=== PATIENT | male | born 1940 | race Caucasian/White ===

== ENCOUNTER 2017-06-21 19:13 | Emergency (ER) | payer MEDICARE, BC ==
[2017-06-21] MEDS ORDERED: ACETAMINOPHEN TAB 500 MG TAB PO STA (19:43)
[2017-06-21] MEDS ORDERED: SODIUM CHLORIDE 0.9% 1,000 ML IV ONE (19:43)
--- NOTE | 2017-06-21 19:46 | ED ---
General Adult HPI - General Chief complaint: Extremity Problem,Nontraumatic Stated complaint: Edema Time Seen by Provider: 06/21/17 19:14 Source: EMS Mode of arrival: EMS Limitations: altered mental status, physical limitation - History of Present Illness Initial comments: Is a 76-year-old male with a history of CVA and A. fib who presents emergency department for lower extremity edema and left hand swelling. It was noticed at the care home today. The patient states that he has no complaints. He states he has a history of stroke with right-sided deficits. He states he feels unchanged from his baseline. No cough or shortness of breath. No bowel pain. No nausea, vomiting, or diarrhea. The patient is alert and oriented 3. He denies any headaches. No other complaints at this time. - Related Data Home Medications Medication Instructions Recorded Confirmed Acetaminophen Tab [Tylenol Tab] 650 mg PO Q6H PRN 06/21/17 06/21/17 Bisacodyl [Dulcolax] 10 mg RECTAL HS PRN 06/21/17 06/21/17 Ferrous Sulfate [Feosol] 325 mg PO DAILY 06/21/17 06/21/17 Iron Polysaccharide Complex 150 mg PO DAILY 06/21/17 06/21/17 [Myferon 150] Lactose-Reduced Food [Ensure Plus] 1 can PO TID 06/21/17 06/21/17 Menthol/Zinc Oxide [Calmoseptine 1 applic TOPICAL BID PRN 06/21/17 06/21/17 Ointment] Metoprolol Tartrate [Lopressor] 25 mg PO BID 06/21/17 06/21/17 Miconazole 2% Cream [Monistat-Derm] 1 applic TOPICAL BID 06/21/17 06/21/17 Mirtazapine [Remeron] 15 mg PO HS 06/21/17 06/21/17 Multivitamins, Thera [Multivitamin 1 tab PO DAILY 06/21/17 06/21/17 (formulary)] Polyethylene Glycol 3350 [Miralax] 17 gm PO DAILY 06/21/17 06/21/17 Potassium Chloride [K-Tab ER] 10 meq PO DAILY 06/21/17 06/21/17 Rivaroxaban [Xarelto] 20 mg PO DAILY 06/21/17 06/21/17 Sennosides-Docusate Sodium 1 tab PO BID 06/21/17 06/21/17 [Senokot-S] Simvastatin [Zocor] 40 mg PO HS 06/21/17 06/21/17 levETIRAcetam [Keppra] 500 mg PO Q12HR 06/21/17 06/21/17 Previous Rx's Medication Instructions Recorded Clindamycin HCl [Cleocin] 600 mg PO TID #42 cap 06/21/17 Allergies Allergy/AdvReac Type Severity Reaction Status Date / Time No Known Allergies Allergy Verified 06/21/17 19:37 Review of Systems ROS Statement: Those systems with pertinent positive or pertinent negative responses have been documented in the HPI. ROS Other: All systems not noted in ROS Statement are negative. Past Medical History Past Medical History: Atrial Fibrillation, CVA/TIA, Deep Vein Thrombosis (DVT), Hyperlipidemia, Hypertension, Pulmonary Embolus (PE) Additional Past Medical History / Comment(s): neoplasm R kidney, pressue ulcers to L buttock, History of Any Multi-Drug Resistant Organisms: None Reported Past Surgical History: Orthopedic Surgery Past Psychological History: Depression Smoking Status: Never smoker Past Alcohol Use History: Occasional Past Drug Use History: None Reported General Exam - General Exam Comments Initial Comments: Constitutional: Awake alert Appears comfortable Head: Normocephalic atraumatic Eyes: no conjunctival injection No scleral icterus EOMI ENT: Oropharynx is nonerythematous, TMs are clear bilaterally Neck: No JVD Supple Heart: Regular rate rhythm normal S1-S2 no murmurs Lungs: Clear to auscultation bilaterally No wheezing No rales Abdomen: Soft nondistended nontender Extremities: Pitting edema to bilateral lower extremities, mild swelling to the left hand with mild redness and warmth, neurovascular intact distally DP pulses intact Radial pulses intact Neuro: A&Ox3 right sided upper and lower extremity weakness which is chronic Psych: Appropriate mood and affect Limitations: altered mental status, physical limitation Course Vital Signs 06/21/17 06/21/17 06/21/17 19:15 21:48 22:00 Temperature 100.3 F H 98.3 F Pulse Rate 60 72 73 Respiratory 17 18 18 Rate Blood Pressure 132/72 122/59 122/59 O2 Sat by Pulse 98 100 96 Oximetry EKG Findings - EKG Comments: EKG Findings:: EKG is showing what appears to be sinus bradycardia with a rate bundle-branch block at a rate of 57. There is some irregularity to the rhythm. QTC is 418. QRS is 134. Other intervals normal. No ectopy. Medical Decision Making - Medical Decision Making Is a 76-year-old male with history of stroke presents emergency department for left hand swelling and lower extremity swelling. Dopplers showed chronic DVT in the lower [place]. The patient is Unser alto already. No DVT in the left upper extremity. Patient did have a mild fever when he came in however no leukocytosis. The rest of his vital signs were stable. Fever resolved after Tylenol. Left hand appears to be developing cellulitis. Going to send the patient on clindamycin. Currently hemodynamically stable. Will be going back to nursing facility who will administer his medications and monitor his hand. Can return for worsening swelling, redness, or persistent fevers. - Lab Data Result diagrams: 06/21/17 19:54 06/21/17 19:54 Lab Results 06/21/17 06/21/17 06/21/17 Range/Units 19:54 19:54 19:54 WBC 5.4 (3.8-10.6) k/uL RBC 3.69 L (4.30-5.90) m/uL Hgb 11.2 L (13.0-17.5) gm/dL Hct 35.0 L (39.0-53.0) % MCV 94.9 D (80.0-100.0) fL MCH 30.4 (25.0-35.0) pg MCHC 32.1 (31.0-37.0) g/dL RDW 16.3 H (11.5-15.5) % Plt Count 269 (150-450) k/uL Neutrophils % 69 % Lymphocytes % 20 % Monocytes % 7 % Eosinophils % 1 % Basophils % 0 % Neutrophils # 3.7 (1.3-7.7) k/uL Lymphocytes # 1.1 (1.0-4.8) k/uL Monocytes # 0.4 (0-1.0) k/uL Eosinophils # 0.1 (0-0.7) k/uL Basophils # 0.0 (0-0.2) k/uL Hypochromasia Slight Anisocytosis Slight Sodium 138 (137-145) mmol/L Potassium 4.7 (3.5-5.1) mmol/L Chloride 102 (98-107) mmol/L Carbon Dioxide 27 (22-30) mmol/L Anion Gap 9 mmol/L BUN 29 H (9-20) mg/dL Creatinine 1.70 H (0.66-1.25) mg/dL Est GFR (MDRD) Af Amer 48 (>60 ml/min/1.73 sqM) Est GFR (MDRD) Non-Af 39 (>60 ml/min/1.73 sqM) Glucose 113 H (74-99) mg/dL Plasma Lactic Acid Efrem (0.7-2.0) mmol/L Calcium 9.7 (8.4-10.2) mg/dL Magnesium 1.9 (1.6-2.3) mg/dL Total Bilirubin 0.5 (0.2-1.3) mg/dL AST 16 L (17-59) U/L ALT 29 (21-72) U/L Alkaline Phosphatase 103 (38-126) U/L CK-MB (CK-2) 0.8 (0.0-2.4) ng/mL Troponin I <0.012 (0.000-0.034) ng/mL Total Protein 6.8 (6.3-8.2) g/dL Albumin 3.9 (3.5-5.0) g/dL Lipase 51 (23-300) U/L Urine Color Urine Appearance (Clear) Urine pH (5.0-8.0) Ur Specific [place] (1.001-1.035) Urine Protein (Negative) Urine Glucose (UA) (Negative) Urine Ketones (Negative) Urine Blood (Negative) Urine Nitrite (Negative) Urine Bilirubin (Negative) Urine Urobilinogen (<2.0) mg/dL Ur Leukocyte Esterase (Negative) Urine RBC (0-5) /hpf Urine WBC (0-5) /hpf Ur Squamous Epith Cells (0-4) /hpf Urine Mucus (None) /hpf Influenza Type A RNA (Not Detectd) Influenza Type B (PCR) (Not Detectd) 06/21/17 06/21/17 06/21/17 Range/Units 19:54 19:54 22:00 WBC (3.8-10.6) k/uL RBC (4.30-5.90) m/uL Hgb (13.0-17.5) gm/dL Hct (39.0-53.0) % MCV (80.0-100.0) fL MCH (25.0-35.0) pg MCHC (31.0-37.0) g/dL RDW (11.5-15.5) % Plt Count (150-450) k/uL Neutrophils % % Lymphocytes % % Monocytes % % Eosinophils % % Basophils % % Neutrophils # (1.3-7.7) k/uL Lymphocytes # (1.0-4.8) k/uL Monocytes # (0-1.0) k/uL Eosinophils # (0-0.7) k/uL Basophils # (0-0.2) k/uL Hypochromasia Anisocytosis Sodium (137-145) mmol/L Potassium (3.5-5.1) mmol/L Chloride (98-107) mmol/L Carbon Dioxide (22-30) mmol/L Anion Gap mmol/L BUN (9-20) mg/dL Creatinine (0.66-1.25) mg/dL Est GFR (MDRD) Af Amer (>60 ml/min/1.73 sqM) Est GFR (MDRD) Non-Af (>60 ml/min/1.73 sqM) Glucose (74-99) mg/dL Plasma Lactic Acid Efrem 0.9 (0.7-2.0) mmol/L Calcium (8.4-10.2) mg/dL Magnesium (1.6-2.3) mg/dL Total Bilirubin (0.2-1.3) mg/dL AST (17-59) U/L ALT (21-72) U/L Alkaline Phosphatase (38-126) U/L CK-MB (CK-2) (0.0-2.4) ng/mL Troponin I (0.000-0.034) ng/mL Total Protein (6.3-8.2) g/dL Albumin (3.5-5.0) g/dL Lipase (23-300) U/L Urine Color Yellow Urine Appearance Cloudy (Clear) Urine pH 5.5 (5.0-8.0) Ur Specific [place] 1.022 (1.001-1.035) Urine Protein 1+ H (Negative) Urine Glucose (UA) Negative (Negative) Urine Ketones Negative (Negative) Urine Blood Negative (Negative) Urine Nitrite Negative (Negative) Urine Bilirubin Negative (Negative) Urine Urobilinogen <2.0 (<2.0) mg/dL Ur Leukocyte Esterase Moderate H (Negative) Urine RBC 4 (0-5) /hpf Urine WBC 3 (0-5) /hpf Ur Squamous Epith Cells 2 (0-4) /hpf Urine Mucus Moderate H (None) /hpf Influenza Type A RNA Not Detected (Not Detectd) Influenza Type B (PCR) Not Detected (Not Detectd) Disposition Clinical Impression: Cellulitis Disposition: DC/TRNS INTERMEDIATE CARE FAC Condition: Stable Instructions: Cellulitis (ED) Prescriptions: Clindamycin HCl [Cleocin] 600 mg PO TID #42 cap Referrals: Hilton Nunes DO [Primary Care Provider] - 1-2 days - Out of Hospital Transfer - Req. Specs Out of Hospital Transfer - Requested Specifics: Other Non-Acute ([facility])
[2017-06-21 20:16] LABS: Anisocytosis Slight; Basophils % (A) 0 %; Eosinophils # (A) 0.1 k/uL (0-0.7); Eosinophils % (A) 1 %; HGB 11.2 gm/dL (13.0-17.5); Hypochromasia Slight; Lymphocytes # (A) 1.1 k/uL (1.0-4.8); Lymphocytes % (A) 20 %; MCH 30.4 pg (25.0-35.0); MCHC 32.1 g/dL (31.0-37.0); Mean Platelet Volume 7.1; Monocytes # (A) 0.4 k/uL (0-1.0); Monocytes % (A) 7 %; Neutrophils # (A) 3.7 k/uL (1.3-7.7); Neutrophils % (A) 69 %; Platelet Count 269 k/uL (150-450); RBC 3.69 m/uL (4.30-5.90); RDW 16.3 % (11.5-15.5); WBC 5.4 k/uL (3.8-10.6)
[2017-06-21 20:24] LABS: MCV 94.9 fL (80.0-100.0)
--- NOTE | 2017-06-21 20:27 | XR ---
EXAMINATION TYPE: XR chest 2V DATE OF EXAM: 06/21/2017 COMPARISON: NONE HISTORY: Chest pain TECHNIQUE: Frontal and lateral views of the chest are obtained. FINDINGS: There is no heart failure nor confluent pneumonic infiltrate. Costophrenic angles are andres r. There is spurring in the thoracic spine. Thoracic aorta is atheromatous. There are chest leads. IMPRESSION: No active cardiopulmonary disease.
[2017-06-21 20:30] LABS: Albumin 3.9 g/dL (3.5-5.0); Calcium 9.7 mg/dL (8.4-10.2); Magnesium 1.9 mg/dL (1.6-2.3); Potassium 4.7 mmol/L (3.5-5.1); Total Bilirubin 0.5 mg/dL (0.2-1.3); Total Protein 6.8 g/dL (6.3-8.2)
[2017-06-21 21:01] LABS: Creatine Kinase MB 0.8 ng/mL (0.0-2.4); Troponin I <0.012 ng/mL (0.000-0.034)
--- NOTE | 2017-06-21 21:20 | US ---
EXAMINATION TYPE: US venous doppler duplex LE DATE OF EXAM: 06/21/2017 8:45 PM COMPARISON: NONE CLINICAL HISTORY: New swelling. Patient is currently taking blood thinners SIDE PERFORMED: Bilateral TECHNIQUE: The lower extremity deep venous system is examined utilizing real time linear array sonog courtney with graded compression, doppler sonography and color-flow sonography. VESSELS IMAGED: External Iliac Vein (EIV) Common Femoral Vein Deep Femoral Vein Greater Saphenous Vein * Femoral Vein Popliteal Vein Small Saphenous Vein * Proximal Calf Veins (* superficial vessels) Right Leg: Positive for non-occluding DVT Left Leg: Positive for non-occluding DVT IMPRESSION: No evidence of acute deep venous thrombosis. There is evidence for limited chronic deep venous thrombosis.
--- NOTE | 2017-06-21 21:24 | US ---
EXAMINATION TYPE: US venous doppler duplex UE LT DATE OF EXAM: 06/21/2017 COMPARISON: NONE CLINICAL HISTORY: New Swelling. SIDE PERFORMED: Left Left Arm: Appears negative for DVT IMPRESSION: Negative exam. No evidence of deep venous thrombosis in the left arm.
[2017-06-21 21:49] VITALS: RESP 18; TEMP 98.3
[2017-06-21 22:25] LABS: Appearance,Urine Cloudy (Clear); Bilirubin,Urine Negative (Negative); Blood,Urine Negative (Negative); Color,Urine Yellow; Glucose,Urine (UA) Negative (Negative); Ketones,Urine Negative (Negative); Leukocyte Esterase,Urine Moderate (Negative); Mucus,Urine Moderate /hpf; Nitrite,Urine Negative (Negative); PH, Urine 5.5 (5.0-8.0); Protein,Urine 1+ (Negative); RBC,Urine 4 /hpf (0-5); Specific Gravity,Urine 1.022 (1.001-1.035); Squamous Epithelial Cell,Urine 2 /hpf (0-4); Urobilinogen,Urine <2.0 mg/dL (<2.0); WBC,Urine 3 /hpf (0-5)
[2017-06-21 23:19] VITALS: BP 131/59; PULSE 67
== END 2017-06-21 23:20 ==
LOC: EEVIPCON 19:13 → EC 19:13
DX: L03.114 Cellulitis of left upper limb (principal); R60.0 Localized edema; E78.5 Hyperlipidemia, unspecified; I10 Essential (primary) hypertension; F32.9 Major depressive disorder, single episode, unspecified; Z85.528 Personal history of other malignant neoplasm of kidney; Z86.73 Personal history of transient ischemic attack (TIA), and cerebral infarction without residual deficits; Z86.711 Personal history of pulmonary embolism; Z86.718 Personal history of other venous thrombosis and embolism; Z79.01 Long term (current) use of anticoagulants; Z79.899 Other long term (current) drug therapy
CPT/HCPCS: 36415; 71020; 80053; 81001; 82553; 83605; 83690; 83735; 84484; 85025; 87040; 87086; 87502; 93005; 93970; 96360; 96361; 99285

== ENCOUNTER 2017-07-09 15:10 | Inpatient (IN) | payer MEDICARE ==
[2017-07-09] MEDS ORDERED: ACETAMINOPHEN TAB 500 MG TAB PO STA (15:12)
[2017-07-09] MEDS ORDERED: SODIUM CHLORIDE 0.9% 1,000 ML IV STA ×2 (15:12)
[2017-07-09] MEDS ORDERED: IBUPROFEN 600 MG TAB PO STA (15:12)
--- NOTE | 2017-07-09 15:21 | ED ---
General Adult HPI - General Chief complaint: Fever Stated complaint: infection Time Seen by Provider: 07/09/17 15:12 Source: EMS, RN notes reviewed, old records reviewed Mode of arrival: EMS Limitations: no limitations - History of Present Illness Initial comments: This is a 69-year-old male to the ER for evaluation. Patient sent for evaluation regarding rule out sepsis. Positive fever weakness elevated heart rate. Patient is weal and having decreased appetite and lack of activity per [place] patient is being treated for outpatient cellulitis is on antibiotics. Patient spiked fever today with increasing complaints of not feeling well - Related Data Home Medications Medication Instructions Recorded Confirmed Acetaminophen Tab [Tylenol Tab] 650 mg PO Q6H PRN 06/21/17 07/09/17 Bisacodyl [Dulcolax] 10 mg RECTAL HS PRN 06/21/17 07/09/17 Iron Polysaccharide Complex 150 mg PO DAILY 06/21/17 07/09/17 [Myferon 150] Lactose-Reduced Food [Ensure Plus] 1 can PO TID 06/21/17 07/09/17 Menthol/Zinc Oxide [Calmoseptine 1 applic TOPICAL BID PRN 06/21/17 07/09/17 Ointment] Metoprolol Tartrate [Lopressor] 25 mg PO BID 06/21/17 07/09/17 Miconazole 2% Cream [Monistat-Derm] 1 applic TOPICAL BID 06/21/17 07/09/17 Mirtazapine [Remeron] 15 mg PO HS 06/21/17 07/09/17 Multivitamins, Thera [Multivitamin 1 tab PO DAILY 06/21/17 07/09/17 (formulary)] Polyethylene Glycol 3350 [Miralax] 17 gm PO DAILY 06/21/17 07/09/17 Potassium Chloride [K-Tab ER] 10 meq PO DAILY 06/21/17 07/09/17 Rivaroxaban [Xarelto] 20 mg PO DAILY 06/21/17 07/09/17 Sennosides-Docusate Sodium 1 tab PO BID 06/21/17 07/09/17 [Senokot-S] Simvastatin [Zocor] 40 mg PO HS 06/21/17 07/09/17 levETIRAcetam [Keppra] 500 mg PO Q12HR 06/21/17 07/09/17 Allergies Allergy/AdvReac Type Severity Reaction Status Date / Time No Known Allergies Allergy Verified 07/09/17 15:25 Review of Systems ROS Statement: Those systems with pertinent positive or pertinent negative responses have been documented in the HPI. ROS Other: All systems not noted in ROS Statement are negative. Past Medical History Past Medical History: Atrial Fibrillation, CVA/TIA, Deep Vein Thrombosis (DVT), Hyperlipidemia, Hypertension, Pulmonary Embolus (PE) Additional Past Medical History / Comment(s): neoplasm R kidney, pressue ulcers to L buttock, History of Any Multi-Drug Resistant Organisms: None Reported Past Surgical History: Orthopedic Surgery Past Psychological History: Depression Smoking Status: Never smoker Past Alcohol Use History: Occasional Past Drug Use History: None Reported General Exam - General Exam Comments Initial Comments: Bilateral hand cellulitis and edema Limitations: no limitations General appearance: alert, in no apparent distress Head exam: Present: atraumatic, normocephalic, normal inspection Eye exam: Present: normal appearance, PERRL, EOMI. Absent: scleral icterus, conjunctival injection, periorbital swelling ENT exam: Present: normal exam, mucous membranes moist Neck exam: Present: normal inspection. Absent: tenderness, meningismus, lymphadenopathy Respiratory exam: Present: normal lung sounds bilaterally. Absent: respiratory distress, wheezes, rales, rhonchi, stridor Cardiovascular Exam: Present: regular rate, normal rhythm, normal heart sounds. Absent: systolic murmur, diastolic murmur, rubs, gallop, clicks GI/Abdominal exam: Present: soft, normal bowel sounds. Absent: distended, tenderness, guarding, rebound, rigid Extremities exam: Present: normal inspection, full ROM, normal capillary refill. Absent: tenderness, pedal edema, joint swelling, calf tenderness Back exam: Present: normal inspection Neurological exam: Present: alert, oriented X3, CN II-XII intact Psychiatric exam: Present: normal affect, normal mood Skin exam: Present: warm, dry, intact, normal color. Absent: rash Course Vital Signs 07/09/17 07/09/17 15:17 16:02 Temperature 101.6 F H Pulse Rate 107 H Respiratory 18 18 Rate Blood Pressure 122/66 O2 Sat by Pulse 97 Oximetry - Reevaluation(s) Reevaluation #1: 07/09/17 15:21 Transferring paperwork is reviewed EKG Findings - EKG Comments: EKG Findings:: EKG shows sinus rhythm rate of 87, QRS 140, QTC 500 Medical Decision Making - Medical Decision Making 69 male the ER for evaluation of fever, patient with fever and cellulitis, felt outpatient treatment. Will admit for IV antibiotics - Lab Data Result diagrams: 07/09/17 15:30 07/09/17 15:30 Lab Results 07/09/17 07/09/17 07/09/17 Range/Units 15:30 15:30 15:30 WBC 6.7 (3.8-10.6) k/uL RBC 3.38 L (4.30-5.90) m/uL Hgb 10.0 L (13.0-17.5) gm/dL Hct 31.8 L (39.0-53.0) % MCV 94.1 (80.0-100.0) fL MCH 29.6 (25.0-35.0) pg MCHC 31.4 (31.0-37.0) g/dL RDW 16.6 H (11.5-15.5) % Plt Count 222 (150-450) k/uL Neutrophils % 75 % Lymphocytes % 16 % Monocytes % 6 % Eosinophils % 1 % Basophils % 0 % Neutrophils # 5.1 (1.3-7.7) k/uL Lymphocytes # 1.1 (1.0-4.8) k/uL Monocytes # 0.4 (0-1.0) k/uL Eosinophils # 0.0 (0-0.7) k/uL Basophils # 0.0 (0-0.2) k/uL Anisocytosis Slight PT (9.0-12.0) sec INR (<1.2) APTT (22.0-30.0) sec Sodium 136 L (137-145) mmol/L Potassium 4.4 (3.5-5.1) mmol/L Chloride 103 (98-107) mmol/L Carbon Dioxide 22 (22-30) mmol/L Anion Gap 11 mmol/L BUN 33 H (9-20) mg/dL Creatinine 1.54 H (0.66-1.25) mg/dL Est GFR (MDRD) Af Amer 53 (>60 ml/min/1.73 sqM) Est GFR (MDRD) Non-Af 44 (>60 ml/min/1.73 sqM) Glucose 147 H (74-99) mg/dL Plasma Lactic Acid Efrem (0.7-2.0) mmol/L Calcium 8.9 (8.4-10.2) mg/dL Phosphorus 3.3 (2.5-4.5) mg/dL Magnesium 1.8 (1.6-2.3) mg/dL Total Bilirubin 0.6 (0.2-1.3) mg/dL AST 21 (17-59) U/L ALT 30 (21-72) U/L Alkaline Phosphatase 85 (38-126) U/L Total Creatine Kinase 316 H (55-170) U/L CK-MB (CK-2) 1.7 (0.0-2.4) ng/mL CK-MB (CK-2) Rel Index 0.5 Troponin I 0.037 H* (0.000-0.034) ng/mL Total Protein 6.2 L (6.3-8.2) g/dL Albumin 3.5 (3.5-5.0) g/dL Urine Color Urine Appearance (Clear) Urine pH (5.0-8.0) Ur Specific [place] (1.001-1.035) Urine Protein (Negative) Urine Glucose (UA) (Negative) Urine Ketones (Negative) Urine Blood (Negative) Urine Nitrite (Negative) Urine Bilirubin (Negative) Urine Urobilinogen (<2.0) mg/dL Ur Leukocyte Esterase (Negative) Urine WBC (0-5) /hpf Ur Squamous Epith Cells (0-4) /hpf Urine Bacteria (None) /hpf Urine Mucus (None) /hpf Influenza Type A RNA (Not Detectd) Influenza Type B (PCR) (Not Detectd) 07/09/17 07/09/17 07/09/17 Range/Units 15:30 15:30 15:35 WBC (3.8-10.6) k/uL RBC (4.30-5.90) m/uL Hgb (13.0-17.5) gm/dL Hct (39.0-53.0) % MCV (80.0-100.0) fL MCH (25.0-35.0) pg MCHC (31.0-37.0) g/dL RDW (11.5-15.5) % Plt Count (150-450) k/uL Neutrophils % % Lymphocytes % % Monocytes % % Eosinophils % % Basophils % % Neutrophils # (1.3-7.7) k/uL Lymphocytes # (1.0-4.8) k/uL Monocytes # (0-1.0) k/uL Eosinophils # (0-0.7) k/uL Basophils # (0-0.2) k/uL Anisocytosis PT 11.7 (9.0-12.0) sec INR 1.2 H (<1.2) APTT 31.6 H (22.0-30.0) sec Sodium (137-145) mmol/L Potassium (3.5-5.1) mmol/L Chloride (98-107) mmol/L Carbon Dioxide (22-30) mmol/L Anion Gap mmol/L BUN (9-20) mg/dL Creatinine (0.66-1.25) mg/dL Est GFR (MDRD) Af Amer (>60 ml/min/1.73 sqM) Est GFR (MDRD) Non-Af (>60 ml/min/1.73 sqM) Glucose (74-99) mg/dL Plasma Lactic Acid Efrem 0.9 (0.7-2.0) mmol/L Calcium (8.4-10.2) mg/dL Phosphorus (2.5-4.5) mg/dL Magnesium (1.6-2.3) mg/dL Total Bilirubin (0.2-1.3) mg/dL AST (17-59) U/L ALT (21-72) U/L Alkaline Phosphatase (38-126) U/L Total Creatine Kinase (55-170) U/L CK-MB (CK-2) (0.0-2.4) ng/mL CK-MB (CK-2) Rel Index Troponin I (0.000-0.034) ng/mL Total Protein (6.3-8.2) g/dL Albumin (3.5-5.0) g/dL Urine Color Urine Appearance (Clear) Urine pH (5.0-8.0) Ur Specific [place] (1.001-1.035) Urine Protein (Negative) Urine Glucose (UA) (Negative) Urine Ketones (Negative) Urine Blood (Negative) Urine Nitrite (Negative) Urine Bilirubin (Negative) Urine Urobilinogen (<2.0) mg/dL Ur Leukocyte Esterase (Negative) Urine WBC (0-5) /hpf Ur Squamous Epith Cells (0-4) /hpf Urine Bacteria (None) /hpf Urine Mucus (None) /hpf Influenza Type A RNA Not Detected (Not Detectd) Influenza Type B (PCR) Not Detected (Not Detectd) 07/09/17 Range/Units 16:10 WBC (3.8-10.6) k/uL RBC (4.30-5.90) m/uL Hgb (13.0-17.5) gm/dL Hct (39.0-53.0) % MCV (80.0-100.0) fL MCH (25.0-35.0) pg MCHC (31.0-37.0) g/dL RDW (11.5-15.5) % Plt Count (150-450) k/uL Neutrophils % % Lymphocytes % % Monocytes % % Eosinophils % % Basophils % % Neutrophils # (1.3-7.7) k/uL Lymphocytes # (1.0-4.8) k/uL Monocytes # (0-1.0) k/uL Eosinophils # (0-0.7) k/uL Basophils # (0-0.2) k/uL Anisocytosis PT (9.0-12.0) sec INR (<1.2) APTT (22.0-30.0) sec Sodium (137-145) mmol/L Potassium (3.5-5.1) mmol/L Chloride (98-107) mmol/L Carbon Dioxide (22-30) mmol/L Anion Gap mmol/L BUN (9-20) mg/dL Creatinine (0.66-1.25) mg/dL Est GFR (MDRD) Af Amer (>60 ml/min/1.73 sqM) Est GFR (MDRD) Non-Af (>60 ml/min/1.73 sqM) Glucose (74-99) mg/dL Plasma Lactic Acid Efrem (0.7-2.0) mmol/L Calcium (8.4-10.2) mg/dL Phosphorus (2.5-4.5) mg/dL Magnesium (1.6-2.3) mg/dL Total Bilirubin (0.2-1.3) mg/dL AST (17-59) U/L ALT (21-72) U/L Alkaline Phosphatase (38-126) U/L Total Creatine Kinase (55-170) U/L CK-MB (CK-2) (0.0-2.4) ng/mL CK-MB (CK-2) Rel Index Troponin I (0.000-0.034) ng/mL Total Protein (6.3-8.2) g/dL Albumin (3.5-5.0) g/dL Urine Color Yellow Urine Appearance Clear (Clear) Urine pH 5.5 (5.0-8.0) Ur Specific [place] 1.018 (1.001-1.035) Urine Protein 1+ H (Negative) Urine Glucose (UA) Negative (Negative) Urine Ketones Negative (Negative) Urine Blood Small H (Negative) Urine Nitrite Negative (Negative) Urine Bilirubin Negative (Negative) Urine Urobilinogen <2.0 (<2.0) mg/dL Ur Leukocyte Esterase Negative (Negative) Urine WBC <1 (0-5) /hpf Ur Squamous Epith Cells <1 (0-4) /hpf Urine Bacteria Rare H (None) /hpf Urine Mucus Rare H (None) /hpf Influenza Type A RNA (Not Detectd) Influenza Type B (PCR) (Not Detectd) Disposition Clinical Impression: Fever, Weakness, Failure of outpatient treatment, Cellulitis Disposition: ADMITTED IP TO THIS [facility] Condition: Good Referrals: Hilton Nunes DO [Primary Care Provider] - 1-2 days
[2017-07-09 15:43] LABS: Anisocytosis Slight; Basophils % (A) 0 %; Eosinophils % (A) 1 %; HCT 31.8 % (39.0-53.0); Lymphocytes # (A) 1.1 k/uL (1.0-4.8); Lymphocytes % (A) 16 %; MCH 29.6 pg (25.0-35.0); MCHC 31.4 g/dL (31.0-37.0); MCV 94.1 fL (80.0-100.0); Mean Platelet Volume 7.2; Monocytes # (A) 0.4 k/uL (0-1.0); Monocytes % (A) 6 %; Neutrophils # (A) 5.1 k/uL (1.3-7.7); Neutrophils % (A) 75 %; Platelet Count 222 k/uL (150-450); RBC 3.38 m/uL (4.30-5.90); RDW 16.6 % (11.5-15.5); WBC 6.7 k/uL (3.8-10.6)
[2017-07-09 15:52] LABS: INR 1.2 (<1.2); Partial Thromboplastin Time 31.6 sec (22.0-30.0); Prothrombin Time 11.7 sec (9.0-12.0)
[2017-07-09 16:00] LABS: Albumin 3.5 g/dL (3.5-5.0); Calcium 8.9 mg/dL (8.4-10.2); Magnesium 1.8 mg/dL (1.6-2.3); Phosphorus 3.3 mg/dL (2.5-4.5); Potassium 4.4 mmol/L (3.5-5.1); Total Bilirubin 0.6 mg/dL (0.2-1.3); Total Protein 6.2 g/dL (6.3-8.2)
[2017-07-09 16:16] LABS: Creatine Kinase MB 1.7 ng/mL (0.0-2.4)
[2017-07-09 16:17] LABS: Troponin I 0.037 ng/mL (0.000-0.034)
[2017-07-09 16:26] LABS: Appearance,Urine Clear (Clear); Bacteria,Urine Rare /hpf; Bilirubin,Urine Negative (Negative); Blood,Urine Small (Negative); Color,Urine Yellow; Glucose,Urine (UA) Negative (Negative); Ketones,Urine Negative (Negative); Leukocyte Esterase,Urine Negative (Negative); Mucus,Urine Rare /hpf; Nitrite,Urine Negative (Negative); PH, Urine 5.5 (5.0-8.0); Protein,Urine 1+ (Negative); Specific Gravity,Urine 1.018 (1.001-1.035); Squamous Epithelial Cell,Urine <1 /hpf (0-4); Urobilinogen,Urine <2.0 mg/dL (<2.0); WBC,Urine <1 /hpf (0-5)
[2017-07-09] MEDS ORDERED: cefTRIAXone IN SWFI 1,000 MG/10 ML SYRINGE IVP STA (16:31)
--- NOTE | 2017-07-09 16:47 | XR ---
EXAMINATION TYPE: XR chest 2V DATE OF EXAM: 07/09/2017 COMPARISON: 06/21/2017 HISTORY: Weakness and fever TECHNIQUE: Frontal and lateral views of the chest are obtained. FINDINGS: There is some mild patchy infiltrate on the right side in the right lower lobe. There is n o heart failure. There is no pleural effusion. There is spurring in the thoracic spine. IMPRESSION: Mild pulmonary infiltrates appear new compared to old exam. No heart failure.
[2017-07-09] MEDS: SODIUM CHLORIDE 0.45% 1,000 ML IV SCH ×2 (16:50→21:47)
[2017-07-09] MEDS ORDERED: LEVOFLOXACIN 750MG-D5W PMX 750 MG in DEXTROSE/WATER 1 150ML.BAG IVPB STA (17:02)
[2017-07-09] MEDS ORDERED: PIPERACILLIN-TAZOBACTAM 3.375 GM in DEXTROSE/WATER 1 50ML.BAG IVPB STA (17:02)
[2017-07-09] MEDS ORDERED: ACETAMINOPHEN TAB 325 MG TAB PO PRN (17:56)
[2017-07-09] MEDS ORDERED: BISACODYL 10 MG SUPP RECTAL PRN (17:56)
[2017-07-09] MEDS ORDERED: MENTHOL-ZINC OXIDE OINT 113 GM TUBE TOPICAL PRN (17:56)
[2017-07-09] MEDS ORDERED: levETIRAcetam 500 MG TAB PO SCH (21:00)
[2017-07-09] MEDS ORDERED: NON-FORMULARY DRUG (Lactose-Reduced Food [Ensure Plus] 1 CAN) PO SCH (22:00)
[2017-07-09] MEDS: ATORVASTATIN 20 MG TAB PO SCH (22:11)
[2017-07-09] MEDS: MIRTAZAPINE 15 MG TAB PO SCH (22:12)
[2017-07-09] MEDS: METOPROLOL TARTRATE 25 MG TAB PO SCH (22:12)
[2017-07-09] MEDS: SENNOSIDES-DOCUSATE SODIUM 1 EACH TAB PO SCH (22:12)
[2017-07-09] MEDS: MICONAZOLE NITRATE 2% CREAM 14 GM TUBE TOPICAL SCH (22:13)
--- NOTE | 2017-07-09 23:14 | HP ---
HISTORY AND PHYSICAL DATE OF ADMISSION: 07/09/2017 PRESENTING COMPLAINT: Fever, altered mental status. HISTORY OF PRESENTING COMPLAINT: This is a 77-year-old patient who was transferred from the [facility]. The patient is rather lethargic, not able to give much of a history, but reading the ER and the EMS notes, was called to the [facility]. The patient did have a fever close to 102, was somewhat confused. Nurse tells me that he is able to say his name. He does mumble when I try to talk to him. The patient was therefore brought in here. Nurse also did inform me that patient was recently at [place]. It did not show what he was there for and then he got transferred to inpatient rehab. The patient's chronic stable medical conditions include atrial fibrillation, stroke, hyperlipidemia, hypertension, kidney disease, neoplasm of right kidney, iron-deficiency anemia, incontinence, unsteady gait leading to assist and stroke affecting the left side with weakness. REVIEW OF SYSTEMS: Really cannot be obtained, as patient is not able to really communicate except for a few words here and there. PAST MEDICAL HISTORY: Atrial fibrillation, stroke, DVT, hypertension, hyperlipidemia, PE, kidney disease, neoplasm right kidney, pressure ulcer of the left buttock, iron-deficiency anemia, incontinent of stool and urine, stroke affecting the left side, unsteady gait with 2 assist to the wheelchair, rheumatic fever. PAST SURGICAL HISTORY: Bilateral knee replacement. PSYCH HISTORY: Depression. SOCIAL HISTORY: A resident of [facility] with 2 assist to wheelchair. The patient has a [facility] Public Guardian. The patient's daughter Cyndie is not the power of personal injury attorney. That was suspended. The patient did smoke in the past, alcohol occasionally. FAMILY HISTORY: Coronary artery disease. HOME MEDICATIONS: 1. Keppra 500 mg p.o. q.12. 2. Zocor 40 mg q.h.s. 3. Senokot-S 1 tablet p.o. b.i.d. 4. Xarelto 20 mg p.o. daily. 5. Potassium 10 mEq p.o. daily. 6. MiraLAX 17 g p.o. daily. 7. Multivitamin 1 tablet p.o. daily. 8. Remeron 50 mg p.o. q.h.s. 9. Monistat-Derm 1 application topical b.i.d. 10.Lopressor 25 p.o. b.i.d. 11.Calmoseptine 1 application topical b.i.d. p.r.n. 12.Ensure Plus 1 can p.o. t.i.d. 13.Myferon 150 mg p.o. daily. 14.Dulcolax 10 mg rectal q.h.s. p.r.n. 15.Tylenol 650 mg every 6 hours p.r.n. ALLERGIES: None. EXAMINATION: VITAL SIGNS: On presentation, temperature 101.6, pulse 107, respirations 18, blood pressure 122/66, pulse ox 97% on 2L. GENERAL APPEARANCE: Lying in bed, lethargic, but just arousable. EYES: Pupils equal. Conjunctivae normal. HEENT: Oral cavity: Dry mucous membranes. NECK: JVD unable to assess. Mass not palpable. RESPIRATORY: Effort slightly increased. LUNGS: Diminished breath sounds. Some crackles. CARDIOVASCULAR: Heart sounds regular. No edema. ABDOMEN: Soft, nontender. Liver and spleen not palpable. PSYCHIATRY: The patient is somewhat delirious, says a few words here and there. NEUROLOGICAL: Pupils equal. No facial asymmetry. Unable to fully assess further, as patient is very lethargic. INVESTIGATIONS: White count 6.7, hemoglobin 10.0. Potassium 4.4, BUN 33, creatinine 1.54. The patient's BUN and creatinine on 05/06/2017 was 27/1.50. Troponin 0.037. UA negative for leuko esterase. Influenza negative. Chest x-ray shows right lower lobe infiltrate. ASSESSMENT: 1. Right lower lobe pneumonia, suspect gram-negative organism causing sepsis. 2. Left-sided weakness from a prior stroke. 3. Hyperlipidemia. 4. Essential hypertension. 5. Right kidney cancer. 6. Depression, not otherwise specified. 7. Acute metabolic encephalopathy from sepsis, present on admission. 8. Right bundle branch block. 9. Persistent atrial fibrillation, chronically on Xarelto. PLAN: At this time, will do aspiration precautions. Patient lethargic, not able to give any medications. The patient is already on IV antibiotics. Will get an ID opinion. Will get a CT scan of the brain and patient clinically does not appear to be have a stroke or will get a neurology opinion. Overall prognosis is guarded. MMODL / IJN: [id number] /
--- NOTE | 2017-07-10 01:02 | CT ---
EXAMINATION TYPE: CT brain wo con DATE OF EXAM: 07/10/2017 COMPARISON: NONE HISTORY: AMS, r/o stroke CT DLP: 1047.10 mGycm Automated exposure control for dose reduction was used. FINDINGS: There is a 7 x 4 cm area of hypodensity in the right parietal and temporal lobe related to old infarc t. There is extensive hypodensity in the periventricular white matter. There is no mass effect nor mi dline shift. There is no evidence of intracranial hemorrhage. The calvarium is intact. IMPRESSION: CEREBRAL ATROPHY AND EXTENSIVE CHRONIC SMALL VESSEL ISCHEMIA. 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
[2017-07-10] MEDS: levETIRAcetam IV 500 MG in SODIUM CHLORIDE 0.9% 100 ML IVPB SCH ×3 (02:07→20:23)
[2017-07-10] MEDS: cefTRIAXone IN SWFI 1,000 MG/10 ML SYRINGE IVP SCH ×3 (02:34→20:23)
[2017-07-10] MEDS: SODIUM CHLORIDE 0.45% 1,000 ML IV SCH ×3 (05:32→20:42)
[2017-07-10] MEDS: METOPROLOL TARTRATE 25 MG TAB PO SCH ×2 (08:55→20:22)
[2017-07-10] MEDS: IRON POLYSACCHARIDES COMPLEX 150 MG CAP PO SCH (08:55)
[2017-07-10] MEDS: PANTOPRAZOLE 40 MG/10 ML VIAL IV SCH (08:56)
[2017-07-10] MEDS: POTASSIUM CHLORIDE ER 10 MEQ TAB.ER.PRT PO SCH (08:57)
[2017-07-10] MEDS: POLYETHYLENE GLYCOL 3350 17 GM POWD.PACK PO SCH (08:57)
[2017-07-10] MEDS: SENNOSIDES-DOCUSATE SODIUM 1 EACH TAB PO SCH ×2 (08:58→20:22)
[2017-07-10] MEDS ORDERED: RIVAROXABAN 10 MG TAB PO SCH (09:00)
[2017-07-10] MEDS: MICONAZOLE NITRATE 2% CREAM 14 GM TUBE TOPICAL SCH ×2 (09:19→20:23)
[2017-07-10] MEDS: MULTIVITAMINS, THERA 1 EACH TAB PO SCH (13:45)
--- NOTE | 2017-07-10 14:24 | P.CONS ---
History of Present Illness - Reason for Consult Consult date: 07/10/17 Fever - History of Present Illness This is a 77-year-old male patient who came in from [facility]. He is unable to give any reliable story. History is obtained from the [facility] records, ER records and nursing staff. Patient apparently has developed fever, weakness increased heart rate and decreased appetite with mental status changes. He was recently treated by Dr. Nunes for bilateral wrist cellulitis for which she was started on Keflex on June 30 and the Medrol Dosepak. X-ray left wrist on June 24 showed no acute abnormality and appears swollen. A shunt brought in by EMS to [facility] emergency center for evaluation. Patient was found to be febrile with temperature 101.6, white count 6.7, creatinine 1.54. Influenza testing was negative. Urinalysis was clear, protein 1+, blood small, bacteria rare. Urine culture is in progress and Blood culture is received. Patient was started on Rocephin, Levaquin and Zosyn in the emergency center and admitted to the selective care unit. There is also consult in place for Dr. Orona for mental status changes. Patient is currently on Rocephin. Review of Systems ROS unobtainable: due to mental status Past Medical History Past Medical History: Atrial Fibrillation, CVA/TIA, Deep Vein Thrombosis (DVT), Hyperlipidemia, Hypertension, Pulmonary Embolus (PE), Renal Disease Additional Past Medical History / Comment(s): rt side dominant,neoplasm R kidney , pressue ulcers to L buttock, cellulitis, iron deficency anemia,incont stooll/ urine,cva affected lt side hemiplegia/hemiparesis, unsteady gait, up w/2 to assist to w/c,uti, rheumatic fever History of Any Multi-Drug Resistant Organisms: None Reported Past Surgical History: Joint Replacement, Orthopedic Surgery Additional Past Surgical History / Comment(s): ed knee replacments Past Anesthesia/Blood Transfusion Reactions: Unable to Obtain Smoking Status: Former smoker - Past Family History Father Family Medical History: Coronary Artery Disease (CAD) Medications and Allergies Home Medications Medication Instructions Recorded Confirmed Type Acetaminophen Tab [Tylenol] 650 mg PO Q6H PRN 06/21/17 07/09/17 History Bisacodyl [Dulcolax] 10 mg RECTAL HS PRN 06/21/17 07/09/17 History Iron Polysaccharide Complex 150 mg PO DAILY 06/21/17 07/09/17 History [Myferon 150] Lactose-Reduced Food [Ensure Plus] 1 can PO TID 06/21/17 07/09/17 History Menthol/Zinc Oxide [Calmoseptine 1 applic TOPICAL BID PRN 06/21/17 07/09/17 History Ointment] Metoprolol Tartrate [Lopressor] 25 mg PO BID 06/21/17 07/09/17 History Miconazole 2% Cream [Monistat-Derm] 1 applic TOPICAL BID 06/21/17 07/09/17 History Mirtazapine [Remeron] 15 mg PO HS 06/21/17 07/09/17 History Multivitamins, Thera [Multivitamin 1 tab PO DAILY 06/21/17 07/09/17 History (formulary)] Polyethylene Glycol 3350 [Miralax] 17 gm PO DAILY 06/21/17 07/09/17 History Potassium Chloride [K-Tab ER] 10 meq PO DAILY 06/21/17 07/09/17 History Sennosides-Docusate Sodium 1 tab PO BID 06/21/17 07/09/17 History [Senokot-S] Simvastatin [Zocor] 40 mg PO HS 06/21/17 07/09/17 History levETIRAcetam [Keppra] 500 mg PO Q12HR 06/21/17 07/09/17 History Aspirin EC [Ecotrin Low Dose] 81 mg PO DAILY #1 tablet. 07/14/17 Rx Cefixime [Suprax] 400 mg PO DAILY 7 Days #7 cap NS 07/14/17 Rx Pantoprazole [Protonix] 40 mg PO [id number] tablet. 07/14/17 Rx Rivaroxaban [Xarelto] 15 mg PO DAILY tab 07/14/17 Rx Allergies Allergy/AdvReac Type Severity Reaction Status Date / Time No Known Allergies Allergy Verified 07/09/17 15:25 Physical Exam Vitals: Vital Signs Temp Pulse Pulse Resp BP BP Pulse Ox 07/10/17 04:00 82 16 117/56 99 07/10/17 00:00 96.2 F L 70 16 109/56 99 07/09/17 20:00 96.4 F L 78 17 110/64 98 07/09/17 18:41 96.7 F L 82 20 115/64 98 07/09/17 18:17 97.1 F L 77 18 114/67 98 07/09/17 16:48 97.1 F L 88 18 115/66 98 07/09/17 16:02 18 07/09/17 15:17 101.6 F H 107 H 18 122/66 97 Intake and Output 07/09/17 07/10/17 07/10/17 22:59 06:59 14:59 Intake Total 300 1200 Output Total 250 Balance 50 1200 Intake: IV 300 1200 Sodium Chloride 0.45% 1, 300 1200 000 ml @ 150 mls/hr IV . Q6H40M [facility] Rx#:[id number] Output: Urine 250 Straight 250 Other: Voiding Method Diaper Diaper Incontinent Incontinent # Voids 1 Weight 89.811 kg 78.5 kg Gen: This is a 77-year-old male patient. Patient appears to be sleeping and arouses to verbal stimuli but is not following direction and dressed back to sleep. HEENT: Head is atraumatic, normocephalic. Pupils equal, round. Sclerae is anicteric. NECK: Supple. No JVD. No lymphadenopathy. No thyromegaly. LUNGS: Diminished. No intercostal retractions. HEART: Regular rate and rhythm. No murmur. ABDOMEN: Soft. Bowel sounds are present. No masses. No tenderness. Patient has been incontinent of urine with diaper in place and is saturated bedding and down. EXTREMITIES: No pedal edema. No calf tenderness. Dorsalis pedus +2 bilateral NEUROLOGICAL: Patient is sleepy arouses to verbal stimuli. Patient is confused. Results Results: Laboratory Results WBC 6.7 k/uL (3.8-10.6) 07/09/17 15:30 RBC 3.38 m/uL (4.30-5.90) L 07/09/17 15:30 Hgb 10.0 gm/dL (13.0-17.5) L 07/09/17 15:30 Hct 31.8 % (39.0-53.0) L 07/09/17 15:30 MCV 94.1 fL (80.0-100.0) 07/09/17 15:30 MCH 29.6 pg (25.0-35.0) 07/09/17 15:30 MCHC 31.4 g/dL (31.0-37.0) 07/09/17 15:30 RDW 16.6 % (11.5-15.5) H 07/09/17 15:30 Plt Count 222 k/uL (150-450) 07/09/17 15:30 Neutrophils % 75 % 07/09/17 15:30 Lymphocytes % 16 % 07/09/17 15:30 Monocytes % 6 % 07/09/17 15:30 Eosinophils % 1 % 07/09/17 15:30 Basophils % 0 % 07/09/17 15:30 Neutrophils # 5.1 k/uL (1.3-7.7) 07/09/17 15:30 Lymphocytes # 1.1 k/uL (1.0-4.8) 07/09/17 15:30 Monocytes # 0.4 k/uL (0-1.0) 07/09/17 15:30 Eosinophils # 0.0 k/uL (0-0.7) 07/09/17:30 Basophils # 0.0 k/uL (0-0.2) 07/09/17 15:30 Anisocytosis Slight 07/09/17 15:30 PT 11.7 sec (9.0-12.0) 07/09/17 15:30 INR 1.2 (<1.2) H 07/09/17 15:30 APTT 31.6 sec (22.0-30.0) H 07/09/17 15:30 Sodium 136 mmol/L (137-145) L 07/09/17 15:30 Potassium 4.4 mmol/L (3.5-5.1) 07/09/17 15:30 Chloride 103 mmol/L (98-107) 07/09/17 15:30 Carbon Dioxide 22 mmol/L (22-30) 07/09/17 15:30 Anion Gap 11 mmol/L 07/09/17 15:30 BUN 33 mg/dL (9-20) H 07/09/17 15:30 Creatinine 1.54 mg/dL (0.66-1.25) H 07/09/17 15:30 Est GFR (MDRD) Af Amer 53 (>60 ml/min/1.73 sqM) 07/09/17 15:30 Est GFR (MDRD) Non-Af 44 (>60 ml/min/1.73 sqM) 07/09/17 15:30 Glucose 147 mg/dL (74-99) H 07/09/17 15:30 Plasma Lactic Acid Efrem 0.9 mmol/L (0.7-2.0) 07/09/17 15:30 Calcium 8.9 mg/dL (8.4-10.2) 07/09/17 15:30 Phosphorus 3.3 mg/dL (2.5-4.5) 07/09/17 15:30 Magnesium 1.8 mg/dL (1.6-2.3) 07/09/17 15:30 Total Bilirubin 0.6 mg/dL (0.2-1.3) 07/09/17 15:30 AST 21 U/L (17-59) 07/09/17 15:30 ALT 30 U/L (21-72) 07/09/17 15:30 Alkaline Phosphatase 85 U/L (38-126) 07/09/17 15:30 Total Creatine Kinase 316 U/L (55-170) H 07/09/17 15:30 CK-MB (CK-2) 1.7 ng/mL (0.0-2.4) 07/09/17 15:30 CK-MB (CK-2) Rel Index 0.5 07/09/17 15:30 Troponin I 0.047 ng/mL (0.000-0.034) H* 07/09/17 23:36 Total Protein 6.2 g/dL (6.3-8.2) L 07/09/17 15:30 Albumin 3.5 g/dL (3.5-5.0) 07/09/17 15:30 Urine Color Yellow 07/09/17 16:10 Urine Appearance Clear (Clear) 07/09/17 16:10 Urine pH 5.5 (5.0-8.0) 07/09/17 16:10 Ur Specific [place] 1.018 (1.001-1.035) 07/09/17 16:10 Urine Protein 1+ (Negative) H 07/09/17 16:10 Urine Glucose (UA) Negative (Negative) 07/09/17 16:10 Urine Ketones Negative (Negative) 07/09/17 16:10 Urine Blood Small (Negative) H 07/09/17 16:10 Urine Nitrite Negative (Negative) 07/09/17 16:10 Urine Bilirubin Negative (Negative) 07/09/17 16:10 Urine Urobilinogen <2.0 mg/dL (<2.0) 07/09/17 16:10 Ur Leukocyte Esterase Negative (Negative) 07/09/17 16:10 Urine WBC <1 /hpf (0-5) 07/09/17 16:10 Ur Squamous Epith Cells <1 /hpf (0-4) 07/09/17 16:10 Urine Bacteria Rare /hpf (None) H 07/09/17 16:10 Urine Mucus Rare /hpf (None) H 07/09/17 16:10 Influenza Type A RNA Not Detected (Not Detectd) 07/09/17 15:35 Influenza Type B (PCR) Not Detected (Not Detectd) 07/09/17 15:35 CBC & Chem 7: 07/12/17 05:51 07/12/17 05:51 Labs: Abnormal Lab Results - Last 24 Hours (Table) 07/09/17 07/09/17 07/09/17 Range/Units 15:30 15:30 15:30 RBC 3.38 L (4.30-5.90) m/uL Hgb 10.0 L (13.0-17.5) gm/dL Hct 31.8 L (39.0-53.0) % RDW 16.6 H (11.5-15.5) % INR (<1.2) APTT (22.0-30.0) sec Sodium 136 L (137-145) mmol/L BUN 33 H (9-20) mg/dL Creatinine 1.54 H (0.66-1.25) mg/dL Glucose 147 H (74-99) mg/dL Total Creatine Kinase 316 H (55-170) U/L Troponin I 0.037 H* (0.000-0.034) ng/mL Total Protein 6.2 L (6.3-8.2) g/dL Urine Protein (Negative) Urine Blood (Negative) Urine Bacteria (None) /hpf Urine Mucus (None) /hpf 07/09/17 07/09/17 07/09/17 Range/Units 15:30 16:10 23:36 RBC (4.30-5.90) m/uL Hgb (13.0-17.5) gm/dL Hct (39.0-53.0) % RDW (11.5-15.5) % INR 1.2 H (<1.2) APTT 31.6 H (22.0-30.0) sec Sodium (137-145) mmol/L BUN (9-20) mg/dL Creatinine (0.66-1.25) mg/dL Glucose (74-99) mg/dL Total Creatine Kinase (55-170) U/L Troponin I 0.047 H* (0.000-0.034) ng/mL Total Protein (6.3-8.2) g/dL Urine Protein 1+ H (Negative) Urine Blood Small H (Negative) Urine Bacteria Rare H (None) /hpf Urine Mucus Rare H (None) /hpf Microbiology - Last 24 Hours (Table) 07/09/17 16:10 Urine Culture - Preliminary Urine,Catheterized Assessment and Plan Plan: This is a 77-year-old male who was brought into the hospital with metabolic encephalopathy, right lower lobe pneumonia possible gram-negative pneumonia, sepsis.. Patient was recently treated for bilateral wrist cellulitis for which she was on Keflex and [facility] Dosepak at the [facility]. Patient is noted to have some erythema and warmth to the right wrist. Continue supportive care. Further recommendations as patient progresses. The above dictated assessment and findings were discussed with Dr. Martin. The impression and plan of care have been directed as dictated. Carol Ann Davidson nurse practitioner acting as scribe for Dr. Martin.
--- NOTE | 2017-07-10 17:53 | P.CNNES ---
History of Present Illness Consult date: 07/10/17 Requesting physician: Kiran Arzola Reason for Consult: Mental status changes History of Present Illness: Patient is a 77-year-old male who is being evaluated by the neurology service on 07/10/2017 per the request of Dr. Arzola for altered mental status. Patient currently resides at [facility] and was transferred from there to [facility]. Patient is a poor historian. History is obtained from nursing staff and chart. Reportedly, patient has had a stroke in the past leaving left-sided weakness. He had developed a fever, weakness, increased heart rate, decreased appetite, and mental status changes area did patient was recently treated for bilateral wrist cellulitis and had been on Keflex and a Medrol Dosepak. On admission, patient was found to be febrile with a temp of 101.6, the WBCs 6.7, BUN 33, creatinine of 1.54, CK 316, and elevated troponins. Patient had a chest x-ray done which showed right lower lobe pneumonia. CT of the brain was done which showed cerebral atrophy and extensive chronic small vessel ischemia. 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 On admission, temperature was 101.6, pulse was 107, respirations 18, blood pressure 122/66, and O2 sat of 97% on 2 L. At the time of my evaluation, patient is lethargic but arousable. Patient does not appear to be in any acute distress. Review of Systems REVIEW OF SYSTEMS: Otherwise unremarkable and noncontributory. Past Medical History Past Medical History: Atrial Fibrillation, CVA/TIA, Deep Vein Thrombosis (DVT), Hyperlipidemia, Hypertension, Pulmonary Embolus (PE), Renal Disease Additional Past Medical History / Comment(s): rt side dominant,neoplasm R kidney , pressue ulcers to L buttock, cellulitis, iron deficency anemia,incont stooll/ urine,cva affected lt side hemiplegia/hemiparesis, unsteady gait, up w/2 to assist to w/c,uti, rheumatic fever History of Any Multi-Drug Resistant Organisms: None Reported Past Surgical History: Joint Replacement, Orthopedic Surgery Additional Past Surgical History / Comment(s): ed knee replacments Past Anesthesia/Blood Transfusion Reactions: Unable to Obtain Smoking Status: Former smoker - Past Family History Father Family Medical History: Coronary Artery Disease (CAD) Medications and Allergies Home Medications Medication Instructions Recorded Confirmed Type Acetaminophen Tab [Tylenol Tab] 650 mg PO Q6H PRN 06/21/17 07/09/17 History Bisacodyl [Dulcolax] 10 mg RECTAL HS PRN 06/21/17 07/09/17 History Iron Polysaccharide Complex 150 mg PO DAILY 06/21/17 07/09/17 History [Myferon 150] Lactose-Reduced Food [Ensure Plus] 1 can PO TID 06/21/17 07/09/17 History Menthol/Zinc Oxide [Calmoseptine 1 applic TOPICAL BID PRN 06/21/17 07/09/17 History Ointment] Metoprolol Tartrate [Lopressor] 25 mg PO BID 06/21/17 07/09/17 History Miconazole 2% Cream [Monistat-Derm] 1 applic TOPICAL BID 06/21/17 07/09/17 History Mirtazapine [Remeron] 15 mg PO HS 06/21/17 07/09/17 History Multivitamins, Thera [Multivitamin 1 tab PO DAILY 06/21/17 07/09/17 History (formulary)] Polyethylene Glycol 3350 [Miralax] 17 gm PO DAILY 06/21/17 07/09/17 History Potassium Chloride [K-Tab ER] 10 meq PO DAILY 06/21/17 07/09/17 History Rivaroxaban [Xarelto] 20 mg PO DAILY 06/21/17 07/09/17 History Sennosides-Docusate Sodium 1 tab PO BID 06/21/17 07/09/17 History [Senokot-S] Simvastatin [Zocor] 40 mg PO HS 06/21/17 07/09/17 History levETIRAcetam [Keppra] 500 mg PO Q12HR 06/21/17 07/09/17 History Allergies Allergy/AdvReac Type Severity Reaction Status Date / Time No Known Allergies Allergy Verified 07/09/17 15:25 Physical Examination - Vital Signs Vital Signs: Vital Signs Temp Pulse Pulse Resp BP BP Pulse Ox 07/10/17 15:48 98.4 F 72 20 100 07/10/17 12:00 98.2 F 111 H 16 99/60 100 07/10/17 08:00 98.2 F 72 16 116/57 100 07/10/17 04:00 82 16 117/56 99 07/10/17 00:00 96.2 F L 70 16 109/56 99 07/09/17 20:00 96.4 F L 78 17 110/64 98 07/09/17 18:41 96.7 F L 82 20 115/64 98 07/09/17 18:17 97.1 F L 77 18 114/67 98 Intake and Output 07/10/17 07/10/17 07/10/17 06:59 14:59 22:59 Intake Total 1200 Balance 1200 Intake: IV 1200 Sodium Chloride 0.45% 1, 1200 000 ml @ 150 mls/hr IV . Q6H40M [facility] Rx#:[id number] Other: Voiding Method Diaper Diaper Diaper Incontinent Incontinent Incontinent # Voids 1 2 1 Weight 78.5 kg PHYSICAL EXAM: GENERAL APPEARANCE: Patient is a well-developed, male who appears to be in no acute distress. HEENT: Normocephalic, atraumatic, no obvious facial asymmetry is seen. Neck is supple with no masses felt. CARDIOVASCULAR: Regular rate and rhythm. ABDOMEN: Nontender, nondistended. EXTREMITIES: Show no edema or clubbing. NEUROLOGICAL EXAM: Patient is lethargic but awakens to name. He is oriented to self only. Speech is mildly dysarthric due to lethargy. Speech is mumbled. Language is normal. Strength is 4/4 in left upper and lower extremities and 5-/ 5 in right upper and lower extremity. Sensory exam is normal to light touch in all 4 extremities. No obvious facial asymmetry is seen on cranial nerve testing. No tremors or seizure-like activity is noted. Results - Laboratory Findings CBC and BMP: 07/09/17 15:30 07/09/17 15:30 Abnormal Lab Findings: Abnormal Labs 07/09/17 07/09/17 07/09/17 15:30 15:30 15:30 RBC 3.38 L Hgb 10.0 L Hct 31.8 L RDW 16.6 H INR APTT Sodium 136 L BUN 33 H Creatinine 1.54 H Glucose 147 H Total Creatine Kinase 316 H Troponin I 0.037 H* Total Protein 6.2 L Urine Protein Urine Blood Urine Bacteria Urine Mucus 07/09/17 07/09/17 07/09/17 15:30 16:10 23:36 RBC Hgb Hct RDW INR 1.2 H APTT 31.6 H Sodium BUN Creatinine Glucose Total Creatine Kinase Troponin I 0.047 H* Total Protein Urine Protein 1+ H Urine Blood Small H Urine Bacteria Rare H Urine Mucus Rare H Assessment and Plan Plan: Impression: 1. Altered mental status 2. Acute multifactorial encephalopathy 3. Pneumonia 4. History of CVA with left-sided weakness 5. Hypertension 6. History of atrial fibrillation, on Xarelto 7. History of kidney cancer Recommendation: The patient's altered mental status was likely due to metabolic encephalopathy from sepsis and fever. Infectious disease has been consulted. It does not appear that patient suffered a cerebrovascular accident. Left- sided weakness is residual from previous stroke. No obvious new lateralizing weakness or facial asymmetry. As mentioned above, computed tomography scan shows no acute findings. It is unclear if patient has history of seizures as he is on Keppra. For now continue Keppra. I will order an EEG. I recommend to continue Xarelto and statin therapy. Continue neurological checks. I will continue to follow with you. Further recommendations to follow. Thank you for allowing me to participate in the care of your patient. The free to call with any questions or concerns. I performed an examination of the patient and discussed the management with the [facility]. I have reviewed the [facility] notes and agree with the findings and plan of care.
--- NOTE | 2017-07-10 18:10 | P.CON ---
Consult Note - . Consult date: 07/10/17 Assessment/Plan:: This is a 77-year-old male patient who came in from [facility]. He is unable to give any reliable story. History is obtained from the [facility] records, ER records and nursing staff. Patient apparently has developed fever, weakness increased heart rate and decreased appetite with mental status changes. He was recently treated by Dr. Nunes for bilateral wrist cellulitis for which she was started on Keflex on June 30 and the Medrol Dosepak. X-ray left wrist on June 24 showed no acute abnormality and appears swollen. A shunt brought in by EMS to [facility] emergency center for evaluation. Patient was found to be febrile with temperature 101.6, white count 6.7, creatinine 1.54. Influenza testing was negative. Urinalysis was clear, protein 1+, blood small, bacteria rare. Urine culture is in progress and Blood culture is received. Patient was started on Rocephin, Levaquin and Zosyn in the emergency center and admitted to the selective care unit. There is also consult in place for Dr. Orona for mental status changes. Patient is currently on Rocephin. Please see the consult note as dictated by nurse practitioner Mrs. Carol Ann Davidson. 77-year-old male as noted is a very poor historian has a waxing and waning mental status. Presents with fever and acute illness as above. Has been seen by neurology and workup is in progress. Underlying infectious etiologies of concern. His concerns pneumonia but that would not explain the significant pain and swelling to the wrist that has waxed and waned. Concern would be to underlying crystalline arthropathy such as gout or pseudogout causing significant pain and swelling to the wrist which also cause fever. Chest x-ray is reviewed showing evidence concerns to new infiltrate. Antimicrobial therapy with Rocephin is adequate at this point in time pending further culture data. Blood work requested for evaluation of question arthropathy. Pain control is currently adequate. I agree with evaluation, assessment and plan as dictated by nurse practitioner Mrs. Carol Ann Davidson.
--- NOTE | 2017-07-10 18:31 | P.PN ---
Progress Note - Text Progress Note Date: 07/10/17 DATE OF SERVICE: 07/10/2017 PRESENTING COMPLAINT: Fever altered mental status HISTORY OF PRESENT ILLNESS: 77-year-old male who was transferred from an ECF found to have a fever close to 102 and was confused. Diagnostics reveal right lower lobe pneumonia and was admitted for the same. INTERVAL HISTORY: 07/10/2017: Lying in bed, minimally responsive opens his eyes to his name, no acute distress , no acute overnight events, afebrile, vital signs stable. Right wrist remains reddened and warm, infectious disease to see the patient. Tolerating his diet, has residual left-sided weakness from an old stroke so requires assistance to ambulate. Last BM prior to admission. REVIEW OF SYSTEMS: Done for constitutional ,cardiovascular, GI, pulmonary with relevant findings as above. CURRENT MEDICATIONS Tylenol, Lipitor, Dulcolax, Rocephin, Keppra, Lopressor, miconazole, mirtazapine , multivitamin, Protonix, MiraLAX, potassium chloride, Xarelto, Senokot-S, half- normal saline PHYSICAL EXAM VITAL SIGNS: Temperature 98.2, pulse 111, respiratory rate 16, blood pressure 99/60, oxygen saturation on her percent on room air. GENERAL APPEARANCE: Lying in bed, lethargic and arousable.. HENT: Normocephalic, JVD not raised. Mass not palpable. Oral cavity dry, external appearance of ears and nose normal. EYES:Pupils equal. Conjunctiva normal. RESPIRATORY: Respiratory effort mildly increased. Lungs diminished with crackles bilaterally to auscultation. CARDIOVASCULAR: Irregular rhythm No edema. ABDOMEN: Soft. Liver and spleen not palpable. No tenderness. No mass palpable. PSYCHIATRY: Answering some very straightforward questions and follows simple commands Mood and affect lethargic. MUSCULOSKELETAL: Residual left-sided weakness from a prior stroke INVESTIGATIONS: LABS: None new Blood and urine cultures pending ASSESSMENT: -Right lower lobe pneumonia, suspect gram-negative organism causing sepsis. -Left sided weakness from prior stroke. -Hyperlipidemia. -Essential hypertension. -Right kidney cancer. -Depression not otherwise specified. -Acute metabolic encephalopathy from sepsis present on admission. -Recurrent bundle branch block. -Persistent atrial flutter fibrillation, chronically on Xarelto. PLAN: Continue current medication and treatment plan, await results of EEG. Continue Keppra. Clinically does not appear that patient is having a stroke that his deficits are related to an old stroke. Rocephin will provide adequate coverage for bilateral wrist cellulitis and further workup continues for evaluation of arthropathy to the wrists. Plan of care discussed at the bedside we'll continue to follow closely. FARM MANAGEMENT SUPERVISOR statement: Patient was seen and examined by nurse practitioner Emmy Simms and all elements of the case discussed with attending Dr. Arzloa
--- NOTE | 2017-07-10 18:48 | XR ---
EXAMINATION TYPE: XR wrist limited bilateral DATE OF EXAM: 07/10/2017 COMPARISON: NONE HISTORY: Pain, gout. TECHNIQUE: 4 views FINDINGS: There is moderate spurring and narrowing at the first carpometacarpal joints. There is some subluxation deformity at the right second and third MP joints. I see no fracture nor dislocation. Th ere is calcification of the triangular cartilage bilaterally. There is vascular calcification. IMPRESSION: Moderate osteoarthritis. There is some subluxation at the MP joints of the right hand antonino t could relate to inflammatory arthritis. There is cartilage calcification consistent with pseudogout .
[2017-07-10] MEDS: MIRTAZAPINE 15 MG TAB PO SCH (20:22)
[2017-07-10] MEDS: ATORVASTATIN 20 MG TAB PO SCH (20:22)
[2017-07-11] MEDS: SODIUM CHLORIDE 0.45% 1,000 ML IV SCH ×4 (09:21→19:47)
[2017-07-11] MEDS: PANTOPRAZOLE 40 MG/10 ML VIAL IV SCH (09:22)
[2017-07-11] MEDS: MICONAZOLE NITRATE 2% CREAM 14 GM TUBE TOPICAL SCH ×2 (09:22→19:53)
[2017-07-11] MEDS: POLYETHYLENE GLYCOL 3350 17 GM POWD.PACK PO SCH (09:23)
[2017-07-11] MEDS: POTASSIUM CHLORIDE ER 10 MEQ TAB.ER.PRT PO SCH (09:23)
[2017-07-11] MEDS: MULTIVITAMINS, THERA 1 EACH TAB PO SCH (09:23)
[2017-07-11] MEDS: METOPROLOL TARTRATE 25 MG TAB PO SCH ×2 (09:24→19:46)
[2017-07-11] MEDS: IRON POLYSACCHARIDES COMPLEX 150 MG CAP PO SCH (09:24)
[2017-07-11] MEDS: RIVAROXABAN 15 MG TAB PO SCH (09:24)
[2017-07-11] MEDS: SENNOSIDES-DOCUSATE SODIUM 1 EACH TAB PO SCH ×2 (09:25→19:46)
[2017-07-11] MEDS: levETIRAcetam IV 500 MG in SODIUM CHLORIDE 0.9% 100 ML IVPB SCH ×2 (09:27→19:46)
[2017-07-11] MEDS: cefTRIAXone IN SWFI 1,000 MG/10 ML SYRINGE IVP SCH ×2 (09:27→19:46)
--- NOTE | 2017-07-11 14:17 | P.PN ---
Subjective Progress Note Date: 07/11/17 Patient is 77-year-old male who is being followed by the neurology service for altered mental status. Patient resides at [facility] and was transferred from [facility] to [facility] for increased weakness, fever, decreased appetite, and mental status changes. Patient was recently treated for bilateral wrist cellulitis and had been on Keflex and a Medrol Dosepak. Infectious disease is following patient for this. Chest x-ray revealed right lower lobe pneumonia. Computed tomography scan of the brain was done which showed cerebral atrophy and extensive chronic small vessel ischemia. 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 Patient continues to have residual left-sided weakness from old infarct. At the time of my evaluation, patient is sitting up in bed eating lunch and appears to be in no acute distress. Objective - Vital Signs Vital signs: Vital Signs Temp 97.3 F L 07/11/17 12:00 Pulse 91 07/11/17 12:00 Resp 18 07/11/17 12:00 BP 119/99 07/11/17 12:00 Pulse Ox 100 07/11/17 12:00 Intake & Output 07/10/17 07/11/17 07/11/17 18:59 06:59 18:59 Intake Total 180 Output Total 0 Balance 180 0 Weight 79.5 kg Intake: Oral 180 Output: Urine 0 Other: Voiding Method Diaper Diaper Diaper Incontinent Incontinent Incontinent # Voids 1 1 - Exam PHYSICAL EXAM: GENERAL APPEARANCE: Patient is a well-developed, male who appears to be in no acute distress. HEENT: Normocephalic, atraumatic, no facial asymmetry is seen. Neck is supple with no masses felt. CARDIOVASCULAR: Regular rate and rhythm. ABDOMEN: Nontender, nondistended. EXTREMITIES: Show no edema or clubbing. NEUROLOGICAL EXAM: Patient is awake, alert, and oriented to self only. Patient states it is 1979 and he is in a [place] [facility] in [place]. Speech is mildly dysarthric but this is baseline for him. Language is normal. Strength is 4/4 in left upper and lower extremity and 5-/5 in right upper and lower extremity. Sensory exam is normal to light touch in all 4 extremities. No obvious facial asymmetry is noted on cranial nerve testing. No tremors or seizure-like activity is noted. - Labs CBC & Chem 7: 07/09/17 15:30 07/09/17 15:30 Labs: Microbiology - Last 24 Hours (Table) 07/09/17 16:10 Urine Culture - Final Urine,Catheterized 07/09/17 15:30 Blood Culture - Preliminary Blood No Growth after 24 hours Assessment and Plan Plan: Impression: 1. Altered mental status 2. Acute multifactorial encephalopathy 3. Pneumonia 4. History of CVA with left-sided weakness 5. Hypertension 6. History of atrial fibrillation, on Xarelto 7. History of kidney cancer Recommendation: The patient's altered mental status is likely due to metabolic encephalopathy from sepsis and fever. Infectious disease has been consulted. It does not appear that patient suffered a new cerebrovascular accident. Left- sided weakness is residual from previous stroke. No obvious new lateralizing weakness or facial asymmetry. As mentioned above, computed tomography scan shows no acute findings. It is unclear if patient has history of seizures as he is on Keppra. For now continue Keppra. EEG was done and results are pending. I recommend to continue Xarelto and statin therapy. Continue neurological checks. I will continue to follow with you. Further recommendations to follow. I performed an examination of the patient and discussed the management with the CUSTOMER EXPERT. I have reviewed the CUSTOMER EXPERT notes and agree with the findings and plan of care.
--- NOTE | 2017-07-11 17:13 | EEG ---
ELECTROENCEPHALOGRAM REPORT DATE OF SERVICE: 07/11/2017. REASON FOR TESTING: Altered mental status. DESCRIPTION OF THE PROCEDURE: This EEG was performed using a 21 channel digital electroencephalograph, following international 10-20 system. DESCRIPTION OF THE RECORDING: From the beginning of the tracing, and with patient's eyes closed, the background rhythm was mostly consisting of 8 Hz alpha frequency in the posterior occipital leads. No obvious asymmetry is seen. Photic stimulation was performed with no driving response seen. No pathological waves were elicited. Hyperventilation was not performed. Occasional muscle and movement artifacts are seen. The patient remains awake throughout the tracing. Hyperventilation was not performed. No epileptiform discharges were seen. His EKG lead showed a regular rate and rhythm. INTERPRETATION: This awake EEG can be considered within normal limits. There is no asymmetry seen. No epileptiform discharges were noticed. The absence of epileptiform discharges does not rule out the diagnosis of epilepsy; therefore, clinical correlation is recommended. MMDESHAUNL / IJN: [id number] /
[2017-07-11] MEDS: ATORVASTATIN 20 MG TAB PO SCH (19:46)
[2017-07-11] MEDS: MIRTAZAPINE 15 MG TAB PO SCH (19:47)
[2017-07-12 06:34] LABS: Basophils % (A) 0 %; Eosinophils # (A) 0.1 k/uL (0-0.7); Eosinophils % (A) 2 %; HCT 30.2 % (39.0-53.0); HGB 9.8 gm/dL (13.0-17.5); Hypochromasia Slight; Lymphocytes % (A) 34 %; MCH 30.1 pg (25.0-35.0); MCHC 32.6 g/dL (31.0-37.0); MCV 92.3 fL (80.0-100.0); Mean Platelet Volume 7.2; Monocytes # (A) 0.2 k/uL (0-1.0); Monocytes % (A) 7 %; Neutrophils # (A) 1.6 k/uL (1.3-7.7); Neutrophils % (A) 54 %; Platelet Count 207 k/uL (150-450); RBC 3.27 m/uL (4.30-5.90); RDW 15.7 % (11.5-15.5)
[2017-07-12 06:44] LABS: Calcium 9.1 mg/dL (8.4-10.2); Potassium 4.4 mmol/L (3.5-5.1)
[2017-07-12] MEDS: SODIUM CHLORIDE 0.45% 1,000 ML IV SCH ×3 (08:51→16:24)
[2017-07-12] MEDS: cefTRIAXone IN SWFI 1,000 MG/10 ML SYRINGE IVP SCH ×2 (09:21→21:11)
[2017-07-12] MEDS: levETIRAcetam IV 500 MG in SODIUM CHLORIDE 0.9% 100 ML IVPB SCH ×2 (09:21→20:25)
[2017-07-12] MEDS: PANTOPRAZOLE 40 MG/10 ML VIAL IV SCH (09:21)
[2017-07-12] MEDS: MULTIVITAMINS, THERA 1 EACH TAB PO SCH (09:22)
[2017-07-12] MEDS: POTASSIUM CHLORIDE ER 10 MEQ TAB.ER.PRT PO SCH (09:22)
[2017-07-12] MEDS: POLYETHYLENE GLYCOL 3350 17 GM POWD.PACK PO SCH (09:22)
[2017-07-12] MEDS: MICONAZOLE NITRATE 2% CREAM 14 GM TUBE TOPICAL SCH ×2 (09:22→20:32)
[2017-07-12] MEDS: SENNOSIDES-DOCUSATE SODIUM 1 EACH TAB PO SCH ×2 (09:22→20:25)
[2017-07-12] MEDS: RIVAROXABAN 15 MG TAB PO SCH (09:23)
[2017-07-12] MEDS: IRON POLYSACCHARIDES COMPLEX 150 MG CAP PO SCH (09:23)
[2017-07-12] MEDS: METOPROLOL TARTRATE 25 MG TAB PO SCH ×2 (09:23→20:25)
[2017-07-12 10:21] VITALS: RESP 18
--- NOTE | 2017-07-12 13:02 | PN ---
PROGRESS NOTE DATE OF SERVICE: 07/10/2017 ATTENDING NOTE: Patient seen and examined by me on 07/10/2017. Discussed with my nurse practitioner, Ms. Simms. I saw this patient last night, was rather encephalopathic. My suspicions are for pneumonia, causing the same. The patient is actually a bit more awake when I see him. Actually answering simple questions. Still lethargic. PHYSICAL EXAMINATION: On examination, afebrile, pulse 101, respiration 16, blood pressure 99/64, pulse ox 100% on room air. Lying in bed, lethargic but much more arousable than last night. Answering more questions. Lungs decreased breath sounds. ASSESSMENT: Right lower lobe pneumonia suspect gram-negative organism causing sepsis, present on admission causing metabolic encephalopathy with some clinical response with fevers coming down and patient is a bit more awake. PLAN: Infectious disease was consulted and so was Neurology. Await their input. In the meantime, we will continue with this. I think the primary cause of infection is patient's lungs and maybe some osteoarthritis of the wrist involved. At the present time, patient has shown clinical improvement. Continue with the same treatment. MMODL / IJN: [id number] /
--- NOTE | 2017-07-12 15:03 | P.PN ---
Subjective Progress Note Date: 07/12/17 Patient is 77-year-old male who is being followed by the neurology service for altered mental status. Patient resides at [facility] and was transferred from [facility] to [facility] for increased weakness, fever, decreased appetite, and mental status changes. Patient was recently treated for bilateral wrist cellulitis and had been on Keflex and a Medrol Dosepak. Infectious disease is following patient for this. Chest x-ray revealed right lower lobe pneumonia. Computed tomography scan of the brain was done which showed cerebral atrophy and extensive chronic small vessel ischemia. 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 Patient continues to have residual left-sided weakness from old infarct. At the time of my evaluation, patient is sitting up in bed eating lunch and appears to be in no acute distress. 07/12/2017 Patient is a 77-year-old male who is being followed by the neurology service for altered mental status. Patient is much more awake and alert today. He is conversant. Patient has a flat affect. Patient is currently being treated with antibiotics for pneumonia. He is being followed by infectious disease. No new neurological deficits noted. At the time of my evaluation, patient is sitting up in bed and appears to be in no acute distress. Objective - Vital Signs Vital signs: Vital Signs Temp 96.4 F L 07/12/17 12:00 Pulse 68 07/12/17 12:00 Resp 18 07/12/17 12:00 BP 119/79 07/12/17 12:00 Pulse Ox 100 07/12/17 12:00 Intake & Output 07/11/17 07/12/17 07/12/17 18:59 06:59 18:59 Intake Total 1890 140 240 Output Total 0 Balance 1890 140 240 Weight 77.5 kg Intake: IV 1650 Sodium Chloride 0.45% 1, 1650 000 ml @ 150 mls/hr IV . Q6H40M [facility] Rx#:[id number] Oral 240 140 240 Output: Urine 0 Other: Voiding Method Diaper Diaper Diaper Incontinent Incontinent Incontinent # Voids 1 1 3 - Exam PHYSICAL EXAM: GENERAL APPEARANCE: Patient is a well-developed, male who appears to be in no acute distress. HEENT: Normocephalic, atraumatic, no facial asymmetry is seen. Neck is supple with no masses felt. CARDIOVASCULAR: Regular rate and rhythm. ABDOMEN: Nontender, nondistended. EXTREMITIES: Show no edema or clubbing. NEUROLOGICAL EXAM: Patient is awake, alert, and oriented to self and place. Patient states it is 1946. Speech is mildly dysarthric but this is baseline for him. Language is normal. Strength is 4/4 in left upper and lower extremity and 5-/5 in right upper and lower extremity. Sensory exam is normal to light touch in all 4 extremities. No obvious facial asymmetry is noted on cranial nerve testing. No tremors or seizure-like activity is noted. - Labs CBC & Chem 7: 07/12/17 05:51 07/12/17 05:51 Labs: Abnormal Lab Results - Last 24 Hours (Table) 07/12/17 07/12/17 Range/Units 05:51 05:51 WBC 3.0 L (3.8-10.6) k/uL RBC 3.27 L (4.30-5.90) m/uL Hgb 9.8 L (13.0-17.5) gm/dL Hct 30.2 L (39.0-53.0) % RDW 15.7 H (11.5-15.5) % BUN 24 H (9-20) mg/dL Creatinine 1.44 H (0.66-1.25) mg/dL Microbiology - Last 24 Hours (Table) 07/09/17 15:30 Blood Culture - Preliminary Blood No Growth after 48 hours Assessment and Plan Plan: Impression: 1. Altered mental status, slowly resolving 2. Acute multifactorial encephalopathy 3. Pneumonia 4. History of CVA with left-sided weakness 5. Hypertension 6. History of atrial fibrillation, on Xarelto 7. History of kidney cancer Recommendation: The patient's altered mental status is likely due to metabolic encephalopathy from sepsis and fever. Infectious disease has been consulted. It does not appear that patient suffered a new cerebrovascular accident. Left- sided weakness is residual from previous stroke. No obvious new lateralizing weakness or facial asymmetry. As mentioned above, computed tomography scan shows no acute findings. It is unclear if patient has history of seizures as he is on Keppra. For now continue Keppra. EEG was normal. I recommend to continue Xarelto and statin therapy. Continue neurological checks. I will continue to follow with you on an as-needed basis. Patient is stable from a neurological standpoint for discharge back to [facility]. Feel free to call with any questions or concerns. I performed an examination of the patient and discussed the management with the MANAGEMENT AND BUDGET ANALYST. I have reviewed the MANAGEMENT AND BUDGET ANALYST notes and agree with the findings and plan of care.
[2017-07-12] MEDS: MIRTAZAPINE 15 MG TAB PO SCH (20:25)
[2017-07-12] MEDS: ATORVASTATIN 20 MG TAB PO SCH (20:26)
--- NOTE | 2017-07-13 01:23 | P.PN ---
Subjective Progress Note Date: 07/11/17 Principal diagnosis: Altered mental status HISTORY OF PRESENT ILLNESS: 77-year-old male with a known history of CVA with left-sided weakness who was transferred from an ECF found to have a fever close to 102 and was confused. Diagnostics reveal right lower lobe pneumonia and was admitted for the same. 07/10/2017: Lying in bed, minimally responsive opens his eyes to his name, no acute distress , no acute overnight events, afebrile, vital signs stable. Right wrist remains reddened and warm, infectious disease to see the patient. Tolerating his diet, has residual left-sided weakness from an old stroke so requires assistance to ambulate. Last BM prior to admission. On 07/11/2017 Patient is more awake and oriented. Right wrist swelling slightly improved. Otherwise no fever no chills. Objective - Vital Signs Vital signs: Vital Signs Temp 98.4 F 07/11/17 15:33 Pulse 72 07/11/17 15:47 Resp 16 07/11/17 15:47 BP 114/60 07/11/17 15:33 Pulse Ox 100 07/11/17 15:33 Intake & Output 07/11/17 07/11/17 07/12/17 06:59 18:59 06:59 Intake Total 1890 140 Output Total 0 Balance 1890 140 Weight 79.5 kg Intake: IV 1650 Sodium Chloride 0.45% 1, 1650 000 ml @ 150 mls/hr IV . Q6H40M [facility] Rx#:[id number] Oral 240 140 Output: Urine 0 Other: Voiding Method Diaper Diaper Incontinent Incontinent # Voids 1 1 - Exam GENERAL APPEARANCE: Lying in bed, lethargic and arousable.. HENT: Normocephalic, JVD not raised. Mass not palpable. Oral cavity dry, external appearance of ears and nose normal. EYES:Pupils equal. Conjunctiva normal. RESPIRATORY: Respiratory effort mildly increased. Lungs diminished with crackles bilaterally to auscultation. CARDIOVASCULAR: Irregular rhythm No edema. ABDOMEN: Soft. Liver and spleen not palpable. No tenderness. No mass palpable. PSYCHIATRY: Answering some very straightforward questions and follows simple commands Mood and affect lethargic. MUSCULOSKELETAL: Residual left-sided weakness from a prior stroke - Labs CBC & Chem 7: 07/12/17 05:51 07/12/17 05:51 Labs: Microbiology - Last 24 Hours (Table) 07/09/17 15:30 Blood Culture - Preliminary Blood No Growth after 48 hours 07/09/17 16:10 Urine Culture - Final Urine,Catheterized Assessment and Plan Assessment: -Right lower lobe pneumonia, suspect gram-negative organism causing sepsis. - left wristswelling and pain possible gout/pseudogout -Left sided weakness from prior stroke. -Hyperlipidemia. -Essential hypertension. -Right kidney cancer. -Depression not otherwise specified. -Acute metabolic encephalopathy from sepsis present on admission. -Recurrent bundle branch block. -Persistent atrial flutter fibrillation, chronically on Xarelto. PLAN: Continue current medication and treatment plan,EEG within normal limits.. Continue Keppra. Clinically does not appear that patient is having a stroke that his deficits are related to an old stroke. Rocephin will provide adequate coverage for bilateral wrist cellulitis and further workup continues for evaluation of arthropathy to the wrists. further recommendations based on the clinical course. ID and neurology is following Time with Patient: Greater than 30
--- NOTE | 2017-07-13 01:26 | P.PN ---
Subjective Progress Note Date: 07/12/17 Principal diagnosis: Altered mental status HISTORY OF PRESENT ILLNESS: 77-year-old male with a known history of CVA with left-sided weakness who was transferred from an ECF found to have a fever close to 102 and was confused. Diagnostics reveal right lower lobe pneumonia and was admitted for the same. 07/10/2017: Lying in bed, minimally responsive opens his eyes to his name, no acute distress , no acute overnight events, afebrile, vital signs stable. Right wrist remains reddened and warm, infectious disease to see the patient. Tolerating his diet, has residual left-sided weakness from an old stroke so requires assistance to ambulate. Last BM prior to admission. On 07/11/2017 Patient is more awake and oriented. wrist swelling slightly improved. Otherwise no fever no chills. 07/12/2017patient is awake and oriented. Mental status is much improved now. Left wrist swelling improved as well. no fever no chills. No complaints ofchest pain or shortness of breath. No other acute overnight issues. WBC 3.0 today Current medications reviewed Objective - Vital Signs Vital signs: Vital Signs Temp 97.6 F 07/12/17 19:52 Pulse 88 07/12/17 19:52 Resp 18 07/12/17 19:52 BP 154/74 07/12/17 19:52 Pulse Ox 100 07/12/17 19:52 Intake & Output 07/12/17 07/12/17 07/13/17 06:59 18:59 06:59 Intake Total 140 540 Balance 140 540 Weight 77.5 kg Intake: Oral 140 540 Other: Voiding Method Diaper Diaper Diaper Incontinent Incontinent Incontinent # Voids 1 1 1 # Bowel Movements 1 - Exam GENERAL APPEARANCE: patient is awake and oriented today. No acute distress.. HENT: Normocephalic, JVD not raised. Mass not palpable. Oral cavity dry, external appearance of ears and nose normal. EYES:Pupils equal. Conjunctiva normal. RESPIRATORY: Respiratory effort mildly increased. diminished ounds basally with minimal crackles to auscultation. improved air entry CARDIOVASCULAR: Irregular rhythm No edema. ABDOMEN: Soft. Liver and spleen not palpable. No tenderness. No mass palpable. PSYCHIATRY: Answering some very straightforward questions and follows simple commands Mood and affect lethargic. MUSCULOSKELETAL: Residual left-sided weakness from a prior stroke - Labs CBC & Chem 7: 07/12/17 05:51 07/12/17 05:51 Labs: Abnormal Lab Results - Last 24 Hours (Table) 07/12/17 07/12/17 Range/Units 05:51 05:51 WBC 3.0 L (3.8-10.6) k/uL RBC 3.27 L (4.30-5.90) m/uL Hgb 9.8 L (13.0-17.5) gm/dL Hct 30.2 L (39.0-53.0) % RDW 15.7 H (11.5-15.5) % BUN 24 H (9-20) mg/dL Creatinine 1.44 H (0.66-1.25) mg/dL Microbiology - Last 24 Hours (Table) 07/09/17 15:30 Blood Culture - Preliminary Blood No Growth after 72 hours Assessment and Plan Assessment: -Right lower lobe pneumonia, suspect gram-negative organism causing sepsis. - left wristswelling and pain possible gout/pseudogout -Left sided weakness from prior stroke. -Hyperlipidemia. -Essential hypertension. -Right kidney cancer. -Depression not otherwise specified. -Acute metabolic encephalopathy from sepsis present on admission. -Recurrent bundle branch block. -Persistent atrial flutter fibrillation, chronically on Xarelto. PLAN: Continue current medication and treatment plan,EEG within normal limits.. Continue Keppra. Clinically does not appear that patient is having a stroke that his deficits are related to an old stroke. Rocephin will provide adequate coverage for bilateral wrist cellulitis and further workup continues for evaluation of arthropathy to the wrists. further recommendations based on the clinical course. ID and neurology is following
[2017-07-13] MEDS: SODIUM CHLORIDE 0.45% 1,000 ML IV SCH ×6 (06:33→21:18)
[2017-07-13] MEDS: PANTOPRAZOLE 40 MG TABLET PO SCH (06:33)
[2017-07-13] MEDS: cefTRIAXone IN SWFI 1,000 MG/10 ML SYRINGE IVP SCH ×2 (08:48→20:13)
[2017-07-13] MEDS: POLYETHYLENE GLYCOL 3350 17 GM POWD.PACK PO SCH (08:48)
[2017-07-13] MEDS: levETIRAcetam 500 MG TAB PO SCH ×2 (08:49→20:13)
[2017-07-13] MEDS: POTASSIUM CHLORIDE ER 10 MEQ TAB.ER.PRT PO SCH (08:49)
[2017-07-13] MEDS: IRON POLYSACCHARIDES COMPLEX 150 MG CAP PO SCH (08:49)
[2017-07-13] MEDS: MICONAZOLE NITRATE 2% CREAM 14 GM TUBE TOPICAL SCH ×2 (08:49→20:18)
[2017-07-13] MEDS: METOPROLOL TARTRATE 25 MG TAB PO SCH ×2 (08:50→20:13)
[2017-07-13] MEDS: RIVAROXABAN 15 MG TAB PO SCH (08:50)
[2017-07-13] MEDS: SENNOSIDES-DOCUSATE SODIUM 1 EACH TAB PO SCH ×2 (08:50→20:13)
[2017-07-13] MEDS: MULTIVITAMINS, THERA 1 EACH TAB PO SCH (08:51)
--- NOTE | 2017-07-13 19:03 | P.PN ---
Subjective Progress Note Date: 07/13/17 Principal diagnosis: Fever This is a 77-year-old male patient who came in from [facility]. He is unable to give any reliable story. History is obtained from the senior care records, ER records and nursing staff. Patient apparently has developed fever, weakness increased heart rate and decreased appetite with mental status changes. He was recently treated by Dr. Nunes for bilateral wrist cellulitis for which she was started on Keflex on June 30 and the Medrol Dosepak. X-ray left wrist on June 24 showed no acute abnormality and appears swollen. A shunt brought in by EMS to [facility] emergency center for evaluation. Patient was found to be febrile with temperature 101.6, white count 6.7, creatinine 1.54. Influenza testing was negative. Urinalysis was clear, protein 1+, blood small, bacteria rare. Urine culture is in progress and Blood culture is received. Patient was started on Rocephin, Levaquin and Zosyn in the emergency center and admitted to the selective care unit. Is feeling slightly better today. Relates that he has significant pain he was having his wrist is improved. Is denying fever or chills. Objective - Vital Signs Vital signs: Vital Signs Temp 97.1 F L 07/13/17 16:00 Pulse 71 07/13/17 16:00 Resp 18 07/13/17 16:00 BP 121/66 07/13/17 16:00 Pulse Ox 99 07/13/17 16:00 Intake & Output 07/12/17 07/13/17 07/13/17 18:59 06:59 18:59 Intake Total 540 236 Output Total 1 Balance 540 -1 236 Weight 78.5 kg Intake: Oral 540 236 Output: Urine 1 Other: Voiding Method Diaper Diaper Diaper Incontinent Incontinent Incontinent # Voids 1 1 1 # Bowel Movements 1 - Exam Gen: This is a 77-year-old male patient. Patient appears to be sleeping and arouses to verbal stimuli but is not following direction and dressed back to sleep. HEENT: Head is atraumatic, normocephalic. Pupils equal, round. Sclerae is anicteric. NECK: Supple. No JVD. No lymphadenopathy. No thyromegaly. LUNGS: Diminished. No intercostal retractions. HEART: Regular rate and rhythm. No murmur. ABDOMEN: Soft. Bowel sounds are present. No masses. No tenderness. Patient has been incontinent of urine with diaper in place and is saturated bedding and down. EXTREMITIES: No pedal edema. No calf tenderness. Dorsalis pedus +2 bilateral The pain swelling and erythema especially to the left wrist is improved. He has much less tenderness upon range of motion. NEUROLOGICAL: Patient is sleepy arouses to verbal stimuli. Patient is confused. - Labs CBC & Chem 7: 07/12/17 05:51 07/12/17 05:51 Labs: Microbiology - Last 24 Hours (Table) 07/09/17 15:30 Blood Culture - Preliminary Blood No Growth after 96 hours Laboratory Results WBC 3.0 k/uL (3.8-10.6) L 07/12/17 05:51 RBC 3.27 m/uL (4.30-5.90) L 07/12/17 05:51 Hgb 9.8 gm/dL (13.0-17.5) L 07/12/17 05:51 Hct 30.2 % (39.0-53.0) L 07/12/17 05:51 MCV 92.3 fL (80.0-100.0) 07/12/17 05:51 MCH 30.1 pg (25.0-35.0) 07/12/17 05:51 MCHC 32.6 g/dL (31.0-37.0) 07/12/17 05:51 RDW 15.7 % (11.5-15.5) H 07/12/17 05:51 Plt Count 207 k/uL (150-450) 07/12/17 05:51 Neutrophils % 54 % 07/12/17 05:51 Lymphocytes % 34 % 07/12/17 05:51 Monocytes % 7 % 07/12/17 05:51 Eosinophils % 2 % 07/12/17 05:51 Basophils % 0 % 07/12/17 05:51 Neutrophils # 1.6 k/uL (1.3-7.7) 07/12/17 05:51 Lymphocytes # 1.0 k/uL (1.0-4.8) 07/12/17 05:51 Monocytes # 0.2 k/uL (0-1.0) 07/12/17 05:51 Eosinophils # 0.1 k/uL (0-0.7) 07/12/17 05:51 Basophils # 0.0 k/uL (0-0.2) 07/12/17 05:51 Hypochromasia Slight 07/12/17 05:51 Anisocytosis Slight 07/09/17 15:30 PT 11.7 sec (9.0-12.0) 07/09/17 15:30 INR 1.2 (<1.2) H 07/09/17 15:30 APTT 31.6 sec (22.0-30.0) H 07/09/17 15:30 Sodium 139 mmol/L (137-145) 07/12/17 05:51 Potassium 4.4 mmol/L (3.5-5.1) 07/12/17 05:51 Chloride 106 mmol/L (98-107) 07/12/17 05:51 Carbon Dioxide 26 mmol/L (22-30) 07/12/17 05:51 Anion Gap 7 mmol/L 07/12/17 05:51 BUN 24 mg/dL (9-20) H 07/12/17 05:51 Creatinine 1.44 mg/dL (0.66-1.25) H 07/12/17 05:51 Est GFR (MDRD) Af Amer 58 (>60 ml/min/1.73 sqM) 07/12/17 05:51 Est GFR (MDRD) Non-Af 47 (>60 ml/min/1.73 sqM) 07/12/17 05:51 Glucose 88 mg/dL (74-99) 07/12/17 05:51 Plasma Lactic Acid Efrem 0.9 mmol/L (0.7-2.0) 07/09/17 15:30 Uric Acid 5.6 mg/dL (3.5-8.5) 07/10/17 18:37 Calcium 9.1 mg/dL (8.4-10.2) 07/12/17 05:51 Phosphorus 3.3 mg/dL (2.5-4.5) 07/09/17 15:30 Magnesium 1.8 mg/dL (1.6-2.3) 07/09/17 15:30 Total Bilirubin 0.6 mg/dL (0.2-1.3) 07/09/17 15:30 AST 21 U/L (17-59) 07/09/17 15:30 ALT 30 U/L (21-72) 07/09/17 15:30 Alkaline Phosphatase 85 U/L (38-126) 07/09/17 15:30 Total Creatine Kinase 316 U/L (55-170) H 07/09/17 15:30 CK-MB (CK-2) 1.7 ng/mL (0.0-2.4) 07/09/17 15:30 CK-MB (CK-2) Rel Index 0.5 07/09/17 15:30 Troponin I 0.047 ng/mL (0.000-0.034) H* 07/09/17 23:36 Total Protein 6.2 g/dL (6.3-8.2) L 07/09/17 15:30 Albumin 3.5 g/dL (3.5-5.0) 07/09/17 15:30 Urine Color Yellow 07/09/17 16:10 Urine Appearance Clear (Clear) 07/09/17 16:10 Urine pH 5.5 (5.0-8.0) 07/09/17 16:10 Ur Specific [place] 1.018 (1.001-1.035) 07/09/17 16:10 Urine Protein 1+ (Negative) H 07/09/17 16:10 Urine Glucose (UA) Negative (Negative) 07/09/17 16:10 Urine Ketones Negative (Negative) 07/09/17 16:10 Urine Blood Small (Negative) H 07/09/17 16:10 Urine Nitrite Negative (Negative) 07/09/17 16:10 Urine Bilirubin Negative (Negative) 07/09/17 16:10 Urine Urobilinogen <2.0 mg/dL (<2.0) 07/09/17 16:10 Ur Leukocyte Esterase Negative (Negative) 07/09/17 16:10 Urine WBC <1 /hpf (0-5) 07/09/17 16:10 Ur Squamous Epith Cells <1 /hpf (0-4) 07/09/17 16:10 Urine Bacteria Rare /hpf (None) H 07/09/17 16:10 Urine Mucus Rare /hpf (None) H 07/09/17 16:10 Influenza Type A RNA Not Detected (Not Detectd) 07/09/17 15:35 Influenza Type B (PCR) Not Detected (Not Detectd) 07/09/17 15:35 Microbiology 07/09/17 15:30 Blood Blood Culture - Preliminary No Growth after 96 hours 07/09/17 16:10 Urine,Catheterized Urine Culture - Final Assessment and Plan (1) Fever Narrative/Plan: 77-year-old male who presented to Hospital some altered mental status from his care facility. He has been seen by neurology and believe his metabolic encephalopathy was worsened by his infection and his poststroke status. 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 His uric acid level was normal. And with hydration and pain control he is considerably improved today. He is not complaining of significant pain of the wrist at this time. Pseudogout or other disease still of concern. Forcefully is improved. Responding well to antibiotic therapy with ceftriaxone. As he improves this could be transitioned to Suprax to complete the course of treatment for his pneumonia which was likely etiology of his fever went to 1.6 at admission. He fortunately was influenza negative. Current Visit: Yes Status: Acute Code(s): R50.9 - FEVER, UNSPECIFIED SNOMED Code(s): 123065223 (2) Cellulitis Current Visit: Yes Status: Acute Code(s): L03.90 - CELLULITIS, UNSPECIFIED SNOMED Code(s): 864108314
[2017-07-13] MEDS: MIRTAZAPINE 15 MG TAB PO SCH (20:13)
[2017-07-13] MEDS: ATORVASTATIN 20 MG TAB PO SCH (20:13)
--- NOTE | 2017-07-13 23:29 | P.PN ---
Subjective Progress Note Date: 07/13/17 Principal diagnosis: Altered mental status HISTORY OF PRESENT ILLNESS: 77-year-old male with a known history of CVA with left-sided weakness who was transferred from an ECF found to have a fever close to 102 and was confused. Diagnostics reveal right lower lobe pneumonia and was admitted for the same. 07/10/2017: Lying in bed, minimally responsive opens his eyes to his name, no acute distress , no acute overnight events, afebrile, vital signs stable. Right wrist remains reddened and warm, infectious disease to see the patient. Tolerating his diet, has residual left-sided weakness from an old stroke so requires assistance to ambulate. Last BM prior to admission. On 07/11/2017 Patient is more awake and oriented. wrist swelling slightly improved. Otherwise no fever no chills. 07/12/2017patient is awake and oriented. Mental status is much improved now. Left wrist swelling improved as well. no fever no chills. No complaints ofchest pain or shortness of breath. No other acute overnight issues. WBC 3.0 today 07/13/2017. Patient is tolerating oral diet. Wrist swelling improved. Breathing status is much improved now. anticipate discharged to rehab tomorrow with oral antibiotics As he in the form of Suprax as per ID recommendations. No fever no chills. No complaints of chest pain or shortness of breath. All other review of systems negative except the above. Current medications reviewed Objective - Vital Signs Vital signs: Vital Signs Temp 96.9 F L 07/13/17 20:00 Pulse 72 07/13/17 20:00 Resp 18 07/13/17 20:00 BP 133/61 07/13/17 20:00 Pulse Ox 96 07/13/17 20:00 Intake & Output 07/13/17 07/13/17 07/14/17 06:59 18:59 06:59 Intake Total 236 Output Total 1 Balance -1 236 Weight 78.5 kg Intake: Oral 236 Output: Urine 1 Other: Voiding Method Diaper Diaper Diaper Incontinent Incontinent Incontinent # Voids 1 1 # Bowel Movements 1 - Exam GENERAL APPEARANCE: patient is awake and oriented today. No acute distress.. HENT: Normocephalic, JVD not raised. Mass not palpable. Oral cavity dry, external appearance of ears and nose normal. EYES:Pupils equal. Conjunctiva normal. RESPIRATORY: Respiratory effort mildly increased. diminished sounds basally with minimal crackles to auscultation. improved air entry CARDIOVASCULAR: Irregular rhythm No edema. ABDOMEN: Soft. Liver and spleen not palpable. No tenderness. No mass palpable. PSYCHIATRY: Answering some very straightforward questions and follows simple commands Mood and affect lethargic. MUSCULOSKELETAL: Residual left-sided weakness from a prior stroke - Labs CBC & Chem 7: 07/12/17 05:51 07/12/17 05:51 Labs: Microbiology - Last 24 Hours (Table) 07/09/17 15:30 Blood Culture - Preliminary Blood No Growth after 96 hours Assessment and Plan Assessment: -Right lower lobe pneumonia, suspect gram-negative organism causing sepsis. - left wristswelling and pain possible gout/pseudogout -Left sided weakness from prior stroke. -Hyperlipidemia. -Essential hypertension. -Right kidney cancer. -Depression not otherwise specified. -Acute metabolic encephalopathy from sepsis present on admission. -Recurrent bundle branch block. -Persistent atrial flutter fibrillation, chronically on Xarelto. PLAN: Continue current medication and treatment plan,EEG within normal limits.. Continue Keppra. Clinically does not appear that patient is having a stroke that his deficits are related to an old stroke. Rocephin will provide adequate coverage for bilateral wrist cellulitis and workup for gouty arthritis as an outpatient. further recommendations based on the clinical course. ID and neurology is following
[2017-07-14] MEDS: PANTOPRAZOLE 40 MG TABLET PO SCH (06:52)
[2017-07-14] MEDS: POLYETHYLENE GLYCOL 3350 17 GM POWD.PACK PO SCH (08:35)
[2017-07-14] MEDS: cefTRIAXone IN SWFI 1,000 MG/10 ML SYRINGE IVP SCH ×2 (08:35→21:19)
[2017-07-14] MEDS: MICONAZOLE NITRATE 2% CREAM 14 GM TUBE TOPICAL SCH ×2 (08:36→21:20)
[2017-07-14] MEDS: METOPROLOL TARTRATE 25 MG TAB PO SCH ×2 (08:36→21:19)
[2017-07-14] MEDS: levETIRAcetam 500 MG TAB PO SCH ×2 (08:36→21:19)
[2017-07-14] MEDS: IRON POLYSACCHARIDES COMPLEX 150 MG CAP PO SCH (08:37)
[2017-07-14] MEDS: RIVAROXABAN 15 MG TAB PO SCH (08:37)
[2017-07-14] MEDS: SENNOSIDES-DOCUSATE SODIUM 1 EACH TAB PO SCH ×2 (08:37→21:19)
[2017-07-14] MEDS: POTASSIUM CHLORIDE ER 10 MEQ TAB.ER.PRT PO SCH (08:37)
[2017-07-14] MEDS: MULTIVITAMINS, THERA 1 EACH TAB PO SCH (08:37)
[2017-07-14] MEDS: SODIUM CHLORIDE 0.45% 1,000 ML IV SCH (15:55)
[2017-07-14] MEDS: ATORVASTATIN 20 MG TAB PO SCH (21:19)
[2017-07-14] MEDS: MIRTAZAPINE 15 MG TAB PO SCH (21:19)
--- NOTE | 2017-07-14 21:31 | P.PN ---
Subjective Progress Note Date: 07/14/17 Principal diagnosis: Fever This is a 77-year-old male patient who came in from [facility]. He is unable to give any reliable story. History is obtained from the detention records, ER records and nursing staff. Patient apparently has developed fever, weakness increased heart rate and decreased appetite with mental status changes. He was recently treated by Dr. Nunes for bilateral wrist cellulitis for which she was started on Keflex on June 30 and the Medrol Dosepak. X-ray left wrist on June 24 showed no acute abnormality and appears swollen. A shunt brought in by EMS to [facility] emergency center for evaluation. Patient was found to be febrile with temperature 101.6, white count 6.7, creatinine 1.54. Influenza testing was negative. Urinalysis was clear, protein 1+, blood small, bacteria rare. Urine culture is in progress and Blood culture is received. Patient was started on Rocephin, Levaquin and Zosyn in the emergency center and admitted to the selective care unit. Is feeling slightly better today. Relates that he has significant pain he was having his wrist is improved. Is denying fever or chills. Objective - Vital Signs Vital signs: Vital Signs Temp 99.3 F 07/14/17 20:00 Pulse 57 L 07/14/17 20:00 Resp 18 07/14/17 20:00 BP 132/68 07/14/17 20:00 Pulse Ox 98 07/14/17 20:00 Intake & Output 07/14/17 07/14/17 07/15/17 06:59 18:59 06:59 Intake Total 320 600 Balance 320 600 Weight 78 kg Intake: IV 320 Sodium Chloride 0.45% 1, 320 000 ml @ 40 mls/hr IV . Q24H RISSA Rx#:[id number] Oral 600 Other: Voiding Method Diaper Diaper Diaper Incontinent Incontinent Incontinent # Voids 1 2 # Bowel Movements 1 - Exam Gen: This is a 77-year-old male patient. Patient appears to be sleeping and arouses to verbal stimuli but is not following direction and dressed back to sleep. HEENT: Head is atraumatic, normocephalic. Pupils equal, round. Sclerae is anicteric. NECK: Supple. No JVD. No lymphadenopathy. No thyromegaly. LUNGS: Symmetrical air entry noted. Few basilar crackles but no bronchial sounds HEART: Regular rate and rhythm. No murmur. ABDOMEN: Soft. Bowel sounds are present. No masses. No tenderness. Patient has been incontinent of urine EXTREMITIES: No pedal edema. No calf tenderness. Dorsalis pedus +2 bilateral but no diarrhea noted The pain swelling and erythema especially to the left wrist is improved. He has much less tenderness upon range of motion. NEUROLOGICAL: Patient is sleepy arouses to verbal stimuli. Patient is confused. - Labs CBC & Chem 7: 07/12/17 05:51 07/12/17 05:51 Labs: Microbiology - Last 24 Hours (Table) 07/09/17 15:30 Blood Culture - Preliminary Blood No Growth after 120 hours Laboratory Results WBC 3.0 k/uL (3.8-10.6) L 07/12/17 05:51 RBC 3.27 m/uL (4.30-5.90) L 07/12/17 05:51 Hgb 9.8 gm/dL (13.0-17.5) L 07/12/17 05:51 Hct 30.2 % (39.0-53.0) L 07/12/17 05:51 MCV 92.3 fL (80.0-100.0) 07/12/17 05:51 MCH 30.1 pg (25.0-35.0) 07/12/17 05:51 MCHC 32.6 g/dL (31.0-37.0) 07/12/17 05:51 RDW 15.7 % (11.5-15.5) H 07/12/17 05:51 Plt Count 207 k/uL (150-450) 07/12/17 05:51 Neutrophils % 54 % 07/12/17 05:51 Lymphocytes % 34 % 07/12/17 05:51 Monocytes % 7 % 07/12/17 05:51 Eosinophils % 2 % 07/12/17 05:51 Basophils % 0 % 07/12/17 05:51 Neutrophils # 1.6 k/uL (1.3-7.7) 07/12/17 05:51 Lymphocytes # 1.0 k/uL (1.0-4.8) 07/12/17 05:51 Monocytes # 0.2 k/uL (0-1.0) 07/12/17 05:51 Eosinophils # 0.1 k/uL (0-0.7) 07/12/17 05:51 Basophils # 0.0 k/uL (0-0.2) 07/12/17 05:51 Hypochromasia Slight 07/12/17 05:51 Anisocytosis Slight 07/09/17 15:30 PT 11.7 sec (9.0-12.0) 07/09/17 15:30 INR 1.2 (<1.2) H 07/09/17 15:30 APTT 31.6 sec (22.0-30.0) H 07/09/17 15:30 Sodium 139 mmol/L (137-145) 07/12/17 05:51 Potassium 4.4 mmol/L (3.5-5.1) 07/12/17 05:51 Chloride 106 mmol/L (98-107) 07/12/17 05:51 Carbon Dioxide 26 mmol/L (22-30) 07/12/17 05:51 Anion Gap 7 mmol/L 07/12/17 05:51 BUN 24 mg/dL (9-20) H 07/12/17 05:51 Creatinine 1.44 mg/dL (0.66-1.25) H 07/12/17 05:51 Est GFR (MDRD) Af Amer 58 (>60 ml/min/1.73 sqM) 07/12/17 05:51 Est GFR (MDRD) Non-Af 47 (>60 ml/min/1.73 sqM) 07/12/17 05:51 Glucose 88 mg/dL (74-99) 07/12/17 05:51 Plasma Lactic Acid Efrem 0.9 mmol/L (0.7-2.0) 07/09/17 15:30 Uric Acid 5.6 mg/dL (3.5-8.5) 07/10/17 18:37 Calcium 9.1 mg/dL (8.4-10.2) 07/12/17 05:51 Phosphorus 3.3 mg/dL (2.5-4.5) 07/09/17 15:30 Magnesium 1.8 mg/dL (1.6-2.3) 07/09/17 15:30 Total Bilirubin 0.6 mg/dL (0.2-1.3) 07/09/17 15:30 AST 21 U/L (17-59) 07/09/17 15:30 ALT 30 U/L (21-72) 07/09/17 15:30 Alkaline Phosphatase 85 U/L (38-126) 07/09/17 15:30 Total Creatine Kinase 316 U/L (55-170) H 07/09/17 15:30 CK-MB (CK-2) 1.7 ng/mL (0.0-2.4) 07/09/17 15:30 CK-MB (CK-2) Rel Index 0.5 07/09/17 15:30 Troponin I 0.047 ng/mL (0.000-0.034) H* 07/09/17 23:36 Total Protein 6.2 g/dL (6.3-8.2) L 07/09/17 15:30 Albumin 3.5 g/dL (3.5-5.0) 07/09/17 15:30 Urine Color Yellow 07/09/17 16:10 Urine Appearance Clear (Clear) 07/09/17 16:10 Urine pH 5.5 (5.0-8.0) 07/09/17 16:10 Ur Specific [place] 1.018 (1.001-1.035) 07/09/17 16:10 Urine Protein 1+ (Negative) H 07/09/17 16:10 Urine Glucose (UA) Negative (Negative) 07/09/17 16:10 Urine Ketones Negative (Negative) 07/09/17 16:10 Urine Blood Small (Negative) H 07/09/17 16:10 Urine Nitrite Negative (Negative) 07/09/17 16:10 Urine Bilirubin Negative (Negative) 07/09/17 16:10 Urine Urobilinogen <2.0 mg/dL (<2.0) 07/09/17 16:10 Ur Leukocyte Esterase Negative (Negative) 07/09/17 16:10 Urine WBC <1 /hpf (0-5) 07/09/17 16:10 Ur Squamous Epith Cells <1 /hpf (0-4) 07/09/17 16:10 Urine Bacteria Rare /hpf (None) H 07/09/17 16:10 Urine Mucus Rare /hpf (None) H 07/09/17 16:10 Influenza Type A RNA Not Detected (Not Detectd) 07/09/17 15:35 Influenza Type B (PCR) Not Detected (Not Detectd) 07/09/17 15:35 Microbiology 07/09/17 15:30 Blood Blood Culture - Preliminary No Growth after 120 hours 07/09/17 16:10 Urine,Catheterized Urine Culture - Final Assessment and Plan (1) Fever Narrative/Plan: 77-year-old male who presented to Hospital some altered mental status from his care facility. He has been seen by neurology and believe his metabolic encephalopathy was worsened by his infection and his poststroke status. 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 His uric acid level was normal. And with hydration and pain control he is considerably improved today. He is not complaining of significant pain of the wrist at this time. Pseudogout or other disease still of concern. Patient is now improved. Responding well to antibiotic therapy with ceftriaxone. As he improves this could be transitioned to Suprax to complete the course of treatment for his pneumonia which was likely etiology of his fever which was present at admission. He fortunately was influenza negative. Current Visit: Yes Status: Acute Code(s): R50.9 - FEVER, UNSPECIFIED SNOMED Code(s): 353852008 (2) Cellulitis Current Visit: Yes Status: Acute Code(s): L03.90 - CELLULITIS, UNSPECIFIED SNOMED Code(s): 303015440
[2017-07-15] MEDS: PANTOPRAZOLE 40 MG TABLET PO SCH (06:36)
[2017-07-15] MEDS: POLYETHYLENE GLYCOL 3350 17 GM POWD.PACK PO SCH (09:06)
[2017-07-15] MEDS: cefTRIAXone IN SWFI 1,000 MG/10 ML SYRINGE IVP SCH (09:06)
[2017-07-15] MEDS: levETIRAcetam 500 MG TAB PO SCH (09:07)
[2017-07-15] MEDS: MULTIVITAMINS, THERA 1 EACH TAB PO SCH (09:07)
[2017-07-15] MEDS: IRON POLYSACCHARIDES COMPLEX 150 MG CAP PO SCH (09:07)
[2017-07-15] MEDS: MICONAZOLE NITRATE 2% CREAM 14 GM TUBE TOPICAL SCH (09:07)
[2017-07-15] MEDS: METOPROLOL TARTRATE 25 MG TAB PO SCH (09:07)
[2017-07-15] MEDS: POTASSIUM CHLORIDE ER 10 MEQ TAB.ER.PRT PO SCH (09:08)
[2017-07-15] MEDS: RIVAROXABAN 15 MG TAB PO SCH (09:08)
[2017-07-15] MEDS: SENNOSIDES-DOCUSATE SODIUM 1 EACH TAB PO SCH (09:08)
[2017-07-15 09:39] VITALS: PULSE 73
[2017-07-15] MEDS: SODIUM CHLORIDE 0.45% 1,000 ML IV SCH (15:29)
--- NOTE | 2017-07-15 15:59 | DS ---
DISCHARGE SUMMARY DATE OF ADMISSION: 07/09/2017 DATE OF DISCHARGE: 07/15/2017 ADMISSION DIAGNOSES: 1. Right lower lobe pneumonia; suspect possible Gram-negative causing sepsis. 2. Left wrist swelling and pain secondary to gout versus pseudogout. 3. Left-sided weakness; sequelae from prior cerebrovascular accident. 4. Hyperlipidemia. 5. Hypertension. 6. Right kidney cancer. 7. Depression. 8. Acute metabolic encephalopathy from sepsis. 9. Persistent atrial flutter/fibrillation. Patient on Xarelto. BRIEF HOSPITAL COURSE: The patient was admitted to the monitored floor, underwent CT of the head in the ED which was negative. EEG was scheduled, which was unremarkable. Patient was continued on Keppra. The patient was started on Rocephin for bilateral wrist cellulitis along with treatment for right lower lobe pneumonia. Home medications were continued. PT and OT were consulted. ID and Neurology were consulted, too, for further recommendations on antibiotic treatment and to rule out a new stroke. The patient did respond to above treatment, became more awake and alert. Wrist pain and redness and swelling improved. Respiratory status improved. White blood count trended down to normal. The patient was seen by ID and was recommended to switch to oral antibiotics Suprax to complete treatment for pneumonia. Neurology evaluated the patient and deficit was thought to be sequelae from old CVA with no acute problems. The patient was continued on IV fluid. Electrolytes and renal functions were monitored, which slowly improved. I&Os were monitored closely. The patient remained stable. He did not have any further complications. PHYSICAL EXAMINATION: At the time of discharge, patient was awake, alert and oriented. VITAL SIGNS: Temperature 98.3, pulse 73, respiration 18, blood pressure 132/63, oxygen saturation 100% on room air. HEENT: Atraumatic, normocephalic. Pupils equal and reactive to light. Extraocular movements intact. Buccal mucosa fair. NECK: Supple. LUNGS: Occasional rhonchi. HEART: Irregularly irregular. ABDOMEN: Soft, nontender, nondistended. Bowel sounds positive. EXTREMITIES: Trace edema. NEUROLOGICAL EXAMINATION: Cranial nerves 2-12 grossly intact. No gross motor or sensory deficit. LABS: Blood cultures were negative throughout. Patient's renal function improved with a creatinine of 1.4 down from 1.5. Patient did not have any further complications. The patient was discharged to a skilled rehab facility. DISCHARGE MEDICATIONS: 1. Lipitor 20 mg p.o. at bedtime. 2. Dulcolax suppository 10 mg at bedtime p.r.n. 3. Ceftriaxone was discontinued upon discharge. 4. Keppra 500 mg p.o. b.i.d. 5. Lopressor 25 mg p.o. b.i.d. 6. Remeron 15 mg p.o. at bedtime. 7. Multivitamins 1 tablet p.o. daily. 8. Protonix 40 mg p.o. before breakfast. 9. MiraLAX 17 gm p.o. daily. 10.Niferex 150 mg p.o. daily. 11.Potassium chloride 10 mEq p.o. daily. 12.Xarelto 15 mg p.o. daily. 13.Senokot S one tablet p.o. b.i.d. The patient was sent with a plan to follow up with his primary care physician and continue all current medications. MMANDREW / SURAJN: [id number] / MTDD
[2017-07-15 16:34] VITALS: BP 138/77; TEMP 99.2
== END 2017-07-15 18:35 | DRG 871 ==
LOC: EC 15:10 → 6SEL 16:02
PROVIDERS: ADMIT Hospitalist; ATTEND Hospitalist
DX: A41.50 Gram-negative sepsis, unspecified (principal); J15.6 Pneumonia due to other Gram-negative bacteria; G93.41 Metabolic encephalopathy; I48.1 Persistent atrial fibrillation; I69.354 Hemiplegia and hemiparesis following cerebral infarction affecting left non-dominant side; L03.113 Cellulitis of right upper limb; L03.114 Cellulitis of left upper limb; R65.20 Severe sepsis without septic shock; R15.9 Full incontinence of feces; D50.9 Iron deficiency anemia, unspecified; E78.5 Hyperlipidemia, unspecified; F32.9 Major depressive disorder, single episode, unspecified; I10 Essential (primary) hypertension; I45.10 Unspecified right bundle-branch block; R32 Unspecified urinary incontinence; M10.9 Gout, unspecified; R26.81 Unsteadiness on feet; R74.8 Abnormal levels of other serum enzymes; Z79.01 Long term (current) use of anticoagulants; Z79.899 Other long term (current) drug therapy; Z96.653 Presence of artificial knee joint, bilateral; Z87.891 Personal history of nicotine dependence; Z86.711 Personal history of pulmonary embolism; Z85.528 Personal history of other malignant neoplasm of kidney; Z86.718 Personal history of other venous thrombosis and embolism; Z82.49 Family history of ischemic heart disease and other diseases of the circulatory system
CPT/HCPCS: 36415; 51701; 70450; 71046; 80048; 80053; 81001; 82550; 82553; 83605; 83735; 84100; 84484; 84550; 85025; 85610; 85730; 87040; 87086; 87502; 93005; 95819; 96361; 96365; 96375; 99285